=== PATIENT | female | born 1930 ===

== ENCOUNTER 2018-04-16 14:44 | Inpatient (IN) | payer MEDICARE ==
[2018-04-16] MEDS ORDERED: Albuterol-Ipratrop 3 mg / 0.5 (3 ml) UD IH STA ×2 (15:22→16:36)
--- NOTE | 2018-04-16 15:53 | RAD ---
Date of service: 04/16/2018 HISTORY: Cough and sob COMPARISON: No prior. FINDINGS: LUNGS: The lungs are well inflated and clear. There is discoid atelectasis in the left lower lobe. PLEURA: No pleural effusions or pneumothorax. CARDIOVASCULAR: The heart is normal in size. There are aortic atherosclerotic calcifications present. OSSEOUS STRUCTURES: Within normal limits for the patient's age. VISUALIZED UPPER ABDOMEN: Normal. OTHER FINDINGS: None. IMPRESSION: No active pulmonary disease.
[2018-04-16 15:57] LABS: BASO # 0.03 K/mm3 (0.0-2.0); BASO % 0.2 % (0.0-3.0); EOS # 0.3 (0.0-0.7); EOS % 1.8 % (1.5-5.0); GRAN # 11.4 (1.4-6.5); GRAN % 77.3 % (50.0-68.0); HEMOGLOBIN 11.8 g/dL (12.0-16.0); LYMPH # 1.6 (1.2-3.4); LYMPH % 10.9 % (22.0-35.0); MEAN CELL VOLUME 92.5 fl (80.0-105.0); MEAN CORPUSCULAR HEMOGLOBIN 30.3 pg (25.0-35.0); MEAN CORPUSCULAR HGB CONC 32.8 g/dl (31.0-37.0); MONO # 1.5 (0.1-0.6); MONO % 9.8 % (1.0-6.0); RBC 3.89 10^6/uL (3.5-6.1); RED CELL DISTRIBUTION WIDTH 13.6 % (11.5-14.5); WHITE BLOOD COUNT 14.7 10^3/uL (4.5-11.0)
[2018-04-16 16:19] LABS: ALBUMIN 3.9 g/dL (3.0-4.8); ALT/SGPT 126 U/L (7-56); AST/SGOT 154 U/L (14-36); B-TYPE NATRIURETIC PEPTIDE 706 pg/mL (0-450); BLOOD UREA NITROGEN 21 mg/dL (7-21); CALCIUM 9.7 mg/dL (8.4-10.5); GFR NON-AFRICAN AMERICAN 43; TROPONIN I < 0.01 ng/mL
[2018-04-16] MEDS ORDERED: cefTRIAXone 1 gm 1 GM/100 ML BAG IVPB STA (16:36)
[2018-04-16] MEDS ORDERED: Azithromycin 500MG/NS 250ml 500 MG/250 ML BAG IVPB STA (16:36)
[2018-04-16] MEDS ORDERED: Albuterol 0.083% Inhal Sol (2.5 mg/3 mL) UD INH PRN (18:22)
[2018-04-16] MEDS ORDERED: guaiFENesin 100 mg/5 ml Syrup UD PO PRN ×2 (18:27→18:48)
--- NOTE | 2018-04-16 18:42 | CP.PCM.HP ---
<Ila Narvaez - Last Filed: 04/16/18 18:33> History of Present Illness - History of Present Illness History of Present Illness: Ila Narvaez DO, PGY-2: Hospitalist HPI 88 year old [place]ralt[place] speaking female with a past medical history of asthma, dyslipidemia, hypothyroidism, and possible CAD who presented with 2 weeks of cough and congestion with 2 days of worsening dyspnea, cough, purulent sputum production, low grade fever, abdominal pain and polyruria. She denies any alleviating or exacerbating factors. She denies sore throat. She is from [place] and was visiting family for the holiday season. She denies any sick contacts, diarrhea, vomiting, nausea. She reports getting sick whenever the seasons change. Otherwise, 12 point ROS is negative. Labs and imaging suggest bronchitis, possible underlying pneumonia. PMH: Suffered a mild heart attack in the past, dyslipidemia, hypertension, asthma PSH: Denies any surgeries Allergies: Denies allergies to any drugs Social: Homemaker, never smoke, drank, or used illicit drugs Medications: as put in the system Present on Admission - Present on Admission Any Indicators Present on Admission: No Review of Systems - Review of Systems All systems: reviewed and no additional remarkable complaints except (as per HPI) Past Patient History - Infectious Disease Hx of Infectious Diseases: None - Past Social History Smoking Status: Unknown If Ever Smoked - CARDIAC Hx Cardiac Disorders: Yes Hx Hypercholesterolemia: Yes - PULMONARY Hx Asthma: Yes - ENDOCRINE/METABOLIC Hx Hypothyroidism: Yes - HEMATOLOGICAL/ONCOLOGICAL Hx Blood Disorders: No - PSYCHIATRIC Hx Substance Use: No - ANESTHESIA Hx Anesthesia Reactions: No Meds Allergies/Adverse Reactions: Allergies Allergy/AdvReac Type Severity Reaction Status Date / Time No Known Allergies Allergy Verified 04/16/18 15:00 Physical Exam - Constitutional Appears: No Acute Distress, Other (congested) - Head Exam Head Exam: ATRAUMATIC, NORMOCEPHALIC - Eye Exam Additional comments: coryza - ENT Exam ENT Exam: Mucous Membranes Moist, Normal Oropharynx Additional comments: no erythema or exudate in posterior pharynx - Respiratory Exam Respiratory Exam: Rhonchi (diffusely and bilaterally, coarse breath sounds). absent: Chest Wall Tenderness - Cardiovascular Exam Cardiovascular Exam: Tachycardia, +S1, +S2 - GI/Abdominal Exam GI & Abdominal Exam: Normal Bowel Sounds, Soft. absent: Guarding, Rebound - Extremities Exam Additional comments: trace lower extremity edema - Back Exam Back exam: NORMAL INSPECTION. absent: CVA tenderness (L), CVA tenderness (R) - Neurological Exam Neurological exam: Alert, CN II-XII Intact, Oriented x3 - Psychiatric Exam Psychiatric exam: Normal Affect, Normal Mood - Skin Skin Exam: Dry, Intact, Normal Color, Warm Results - Vital Signs Recent Vital Signs: Last Vital Signs Temp 99.2 F 04/16/18 14:50 Pulse 110 H 04/16/18 18:22 Resp 18 04/16/18 18:22 BP 171/80 H 04/16/18 18:22 Pulse Ox 96 04/16/18 18:22 - Labs Result Diagrams: 04/16/18 15:52 04/16/18 15:52 Labs: Laboratory Results - last 24 hr 04/16/18 04/16/18 04/16/18 15:52 15:52 15:52 WBC 14.7 H RBC 3.89 Hgb 11.8 L Hct 36.0 MCV 92.5 MCH 30.3 MCHC 32.8 RDW 13.6 Plt Count 416 MPV 10.0 Gran % 77.3 H Lymph % (Auto) 10.9 L [place] % (Auto) 9.8 H Eos % (Auto) 1.8 Baso % (Auto) 0.2 Gran # 11.40 H Lymph # (Auto) 1.6 [place] # (Auto) 1.5 H Eos # (Auto) 0.3 Baso # (Auto) 0.03 Sodium 141 Potassium 4.3 Chloride 109 H Carbon Dioxide 26 Anion Gap 10 BUN 21 Creatinine 1.2 Est GFR ( Amer) 52 Est GFR (Non-Af Amer) 43 Random Glucose 98 Calcium 9.7 Total Bilirubin 0.5 AST 154 H ALT 126 H Alkaline Phosphatase 159 H Lactate Dehydrogenase 670 Total Creatine Kinase 87 Troponin I < 0.01 NT-Pro-B Natriuret Pep 706 H Total Protein 7.8 Albumin 3.9 Globulin 3.8 Albumin/Globulin Ratio 1.0 L Influenza Typ A,B (EIA) Negative for flu a/b - EKG Data EKG shows normal: Sinus rhythm Assessment & Plan - Assessment and Plan (Free Text) Assessment: 88 year old female with a past medical history of dyslipidemia, asthma, possible CAD, hypothyroidism who presents with 2 days of worsening cough, dyspnea, and purulent sputum production. Labs and imaging suggest acute bronchitis and possible underlying pneumonia. 1) Acute bronchitis - Azithromycin and Ceftriaxone - Chest X-ray shows no infiltrate - Leukocytosis with neutrophil predominance (prior to steroid administration) - Albuterol inhaled q4h PRN - Tessalon Perles 100 TID - Robitussin q4h PRN for cough - Procalcitonin - urine legionella and strep pneumonia antigen - Serum IgM Mycoplasma pneumonia - Blood cultures, urine and sputum cultures - NS 60 mls/hr 2) History of [place] - Aspirin 81 - Atorvastatin 10 mg DIN - Enalapril (hold for now) - Dilitazem 120 CD - Lipid panel, HgbA1c 3) Hypothyroidism - Levothyroxine 100 mcg 06:00 4) History of CHF - Lasix 40 mg PO daily 5) DVT prophylaxis - SCD Case reviewed and discussed with attending physician Dr. Delarosa - Date & Time Date: 04/16/18 Time: 18:53 <Govind Delarosa - Last Filed: 04/17/18 08:53> Results - Vital Signs Recent Vital Signs: Last Vital Signs Temp 98.1 F 04/17/18 06:00 Pulse 93 H 04/17/18 06:50 Resp 20 04/17/18 06:00 BP 168/87 H 04/17/18 06:50 Pulse Ox 96 04/16/18 18:22 - Labs Result Diagrams: 04/17/18 07:00 04/17/18 07:00 Labs: Laboratory Results - last 24 hr 04/16/18 04/16/18 04/16/18 15:52 15:52 15:52 WBC 14.7 H RBC 3.89 Hgb 11.8 L Hct 36.0 MCV 92.5 MCH 30.3 MCHC 32.8 RDW 13.6 Plt Count 416 MPV 10.0 Gran % 77.3 H Lymph % (Auto) 10.9 L [place] % (Auto) 9.8 H Eos % (Auto) 1.8 Baso % (Auto) 0.2 Gran # 11.40 H Lymph # (Auto) 1.6 [place] # (Auto) 1.5 H Eos # (Auto) 0.3 Baso # (Auto) 0.03 Sodium 141 Potassium 4.3 Chloride 109 H Carbon Dioxide 26 Anion Gap 10 BUN 21 Creatinine 1.2 Est GFR ( Amer) 52 Est GFR (Non-Af Amer) 43 POC Glucose (mg/dL) Random Glucose 98 Hemoglobin A1c Calcium 9.7 Total Bilirubin 0.5 AST 154 H ALT 126 H Alkaline Phosphatase 159 H Lactate Dehydrogenase 670 Total Creatine Kinase 87 Troponin I < 0.01 NT-Pro-B Natriuret Pep 706 H Total Protein 7.8 Albumin 3.9 Globulin 3.8 Albumin/Globulin Ratio 1.0 L Triglycerides Cholesterol LDL Cholesterol Direct HDL Cholesterol Procalcitonin Free T4 TSH 3rd Generation Urine Color Urine Appearance Urine pH Ur Specific [place] Urine Protein Urine Glucose (UA) Urine Ketones Urine Blood Urine Nitrate Urine Bilirubin Urine Urobilinogen Ur Leukocyte Esterase Urine RBC Urine WBC Ur Epithelial Cells Urine Bacteria Influenza Typ A,B (EIA) Negative for flu a/b Mycoplasma pneumon IgM 04/16/18 04/16/18 04/16/18 17:00 17:00 17:00 WBC RBC Hgb Hct MCV MCH MCHC RDW Plt Count MPV Gran % Lymph % (Auto) [place] % (Auto) Eos % (Auto) Baso % (Auto) Gran # Lymph # (Auto) [place] # (Auto) Eos # (Auto) Baso # (Auto) Sodium Potassium Chloride Carbon Dioxide Anion Gap BUN Creatinine Est GFR ( Amer) Est GFR (Non-Af Amer) POC Glucose (mg/dL) Random Glucose Hemoglobin A1c Calcium Total Bilirubin AST ALT Alkaline Phosphatase Lactate Dehydrogenase Total Creatine Kinase Troponin I NT-Pro-B Natriuret Pep Total Protein Albumin Globulin Albumin/Globulin Ratio Triglycerides 118 Cholesterol 132 LDL Cholesterol Direct 68 HDL Cholesterol 28 L Procalcitonin 0.54 H Free T4 TSH 3rd Generation Urine Color Urine Appearance Urine pH Ur Specific [place] Urine Protein Urine Glucose (UA) Urine Ketones Urine Blood Urine Nitrate Urine Bilirubin Urine Urobilinogen Ur Leukocyte Esterase Urine RBC Urine WBC Ur Epithelial Cells Urine Bacteria Influenza Typ A,B (EIA) Mycoplasma pneumon IgM Negative 04/16/18 04/17/18 04/17/18 17:00 00:30 00:51 WBC RBC Hgb Hct MCV MCH MCHC RDW Plt Count MPV Gran % Lymph % (Auto) [place] % (Auto) Eos % (Auto) Baso % (Auto) Gran # Lymph # (Auto) [place] # (Auto) Eos # (Auto) Baso # (Auto) Sodium Potassium Chloride Carbon Dioxide Anion Gap BUN Creatinine Est GFR ( Amer) Est GFR (Non-Af Amer) POC Glucose (mg/dL) 129 H Random Glucose Hemoglobin A1c 5.8 Calcium Total Bilirubin AST ALT Alkaline Phosphatase Lactate Dehydrogenase Total Creatine Kinase Troponin I NT-Pro-B Natriuret Pep Total Protein Albumin Globulin Albumin/Globulin Ratio Triglycerides Cholesterol LDL Cholesterol Direct HDL Cholesterol Procalcitonin Free T4 TSH 3rd Generation Urine Color Yellow Urine Appearance Clear Urine pH 6.0 Ur Specific [place] 1.025 Urine Protein Trace H Urine Glucose (UA) Negative Urine Ketones Negative Urine Blood Small H Urine Nitrate Negative Urine Bilirubin Negative Urine Urobilinogen 0.2 Ur Leukocyte Esterase Negative Urine RBC 1 - 3 H Urine WBC 0 - 2 Ur Epithelial Cells 1 - 3 Urine Bacteria Few Influenza Typ A,B (EIA) Mycoplasma pneumon IgM 04/17/18 04/17/18 04/17/18 07:00 07:00 07:00 WBC 15.1 H RBC 3.77 Hgb 11.4 L Hct 34.8 L MCV 92.3 MCH 30.2 MCHC 32.8 RDW 13.6 Plt Count 483 H MPV 10.3 Gran % 86.8 H Lymph % (Auto) 9.7 L [place] % (Auto) 3.4 Eos % (Auto) 0.0 L Baso % (Auto) 0.1 Gran # 13.11 H Lymph # (Auto) 1.5 [place] # (Auto) 0.5 Eos # (Auto) 0.0 Baso # (Auto) 0.01 Sodium 141 Potassium 4.7 Chloride 108 H Carbon Dioxide 25 Anion Gap 13 BUN 22 H Creatinine 1.1 Est GFR ( Amer) 57 Est GFR (Non-Af Amer) 47 POC Glucose (mg/dL) Random Glucose 143 H Hemoglobin A1c Calcium 9.8 Total Bilirubin AST ALT Alkaline Phosphatase Lactate Dehydrogenase Total Creatine Kinase Troponin I NT-Pro-B Natriuret Pep Total Protein Albumin Globulin Albumin/Globulin Ratio Triglycerides Cholesterol LDL Cholesterol Direct HDL Cholesterol Procalcitonin Free T4 1.15 TSH 3rd Generation 2.58 Urine Color Urine Appearance Urine pH Ur Specific [place] Urine Protein Urine Glucose (UA) Urine Ketones Urine Blood Urine Nitrate Urine Bilirubin Urine Urobilinogen Ur Leukocyte Esterase Urine RBC Urine WBC Ur Epithelial Cells Urine Bacteria Influenza Typ A,B (EIA) Mycoplasma pneumon IgM Attending/Attestation - Attestation I have personally seen and examined this patient.: Yes I have fully participated in the care of the patient.: Yes I have reviewed all pertinent clinical information: Yes
[2018-04-16 18:46] LABS: HDL CHOLESTEROL 28 mg/dL (29-60)
[2018-04-16 18:57] LABS: LDL CHOLESTEROL 68 mg/dL (0-129)
--- NOTE | 2018-04-16 19:12 | ED PDOC ---
Arrival/HPI - General Chief Complaint: Cough, Cold, Congestion Time Seen by Provider: 04/16/18 14:50 Historian: Patient, Family - History of Present Illness Narrative History of Present Illness (Text): 04/16/18 19:09 88yr old female with hx of asthma, HTN, CAD presents today with a 2 week history of cough, shortness of breath, subjective fevers. pt c/o left sided rib pain with coughing. pt states she symptoms have been worsening over the past 2 weeks. pt c/o sore throat and nasal congestion. pt denies vomiting/diarrhea. pt c/of urinary frequency. no dizziness or weakness. pt denies leg pain, leg swelling. no other complaints. Past Medical History - Provider Review Nursing Documentation Reviewed: Yes - Travel History Have you recently traveled outside [place] w/in the past 3 mons?: No - Infectious Disease Hx of Infectious Diseases: None - Reproductive Menopause: Yes - Cardiac Hx Cardiac Disorders: Yes - Pulmonary Hx Asthma: Yes - Endocrine/Metabolic Hx Hypothyroidism: Yes - Hematological/Oncological Hx Blood Disorders: No - Psychiatric Hx Substance Use: No - Anesthesia Hx Anesthesia Reactions: No Family/Social History - Physician Review Nursing Documentation Reviewed: Yes Family/Social History: Unknown Family HX Smoking Status: Unknown If Ever Smoked Hx Alcohol Use: No Hx Substance Use: No Allergies/Home Meds Allergies/Adverse Reactions: Allergies No Known Allergies Allergy (Verified 04/16/18 15:00) Home Medications: Home Meds Medication Instructions Recorded Confirmed Atorvastatin [Lipitor] 0 mg PO DIN 04/16/18 04/16/18 Review of Systems - Review of Systems Constitutional: Fevers. absent: Fatigue ENT: Sore Throat, Sinus Congestion Respiratory: SOB, Cough Cardiovascular: absent: Chest Pain, Palpitations Gastrointestinal: Abdominal Pain. absent: Constipation, Diarrhea, Nausea, Vomiting Genitourinary Female: Frequency. absent: Dysuria, Hematuria Musculoskeletal: absent: Arthralgias, Back Pain, Neck Pain Skin: absent: Rash, Pruritis Neurological: absent: Headache, Dizziness Psychiatric: absent: Anxiety, Depression Physical Exam Vital Signs Reviewed: Yes Vital Signs Temp Pulse Resp BP Pulse Ox 04/16/18 18:18 113 H 20 171/91 H 96 04/16/18 17:54 110 H 18 152/88 H 96 04/16/18 16:57 93 H 20 152/80 H 100 04/16/18 14:50 99.2 F 99 H 20 157/95 H 94 L Temperature: Afebrile Blood Pressure: Hypertensive Pulse: Regular Respiratory Rate: Tachypneic Appearance: Positive for: Well-Appearing, Non-Toxic, Comfortable Pain Distress: Mild Mental Status: Positive for: Alert and Oriented X 3 - Systems Exam Head: Present: Atraumatic Mouth: Present: Moist Mucous Membranes Neck: Present: Normal Range of Motion Respiratory/Chest: Present: Good Air Exchange, Wheezes, Rales (at the bases), Rhonchi, Tachypneic. No: Clear to Auscultation, Respiratory Distress, Accessory Muscle Use Cardiovascular: Present: Regular Rate and Rhythm, Normal S1, S2. No: Murmurs Abdomen: No: Tenderness, Distention, Rebound, Guarding Back: Present: Normal Inspection Upper Extremity: Present: Normal ROM Lower Extremity: Present: Normal ROM. No: Edema, CALF TENDERNESS Neurological: Present: GCS=15, Speech Normal Skin: Present: Warm, Dry, Normal Color. No: Rashes Psychiatric: Present: Alert, Oriented x 3 Medical Decision Making ED Course and Treatment: 04/16/18 19:13 88yr old female with cough, shortness of breath worsening over the past 2 weeks. Found to be tachypneic with wheezing rhonchi and rales at the bases saturating at 92-94% on room air cbc: wbc:14.7 CMP: slightly elevated LFts. trop; wnl BNp; 706 EKG shows sinus rhythm with PACs at 89 bpm left axis deviation and right bundle branch block QTC 462 pt given duoneb/ solumedrol pt reassessment; pt feeling better. still slightly hypoxic. cxr; FINDINGS: LUNGS: The lungs are well inflated and clear. There is discoid atelectasis in the left lower lobe. PLEURA: No pleural effusions or pneumothorax. CARDIOVASCULAR: The heart is normal in size. There are aortic atherosclerotic calcifications present. OSSEOUS STRUCTURES: Within normal limits for the patient's age. VISUALIZED UPPER ABDOMEN: Normal. OTHER FINDINGS: None. IMPRESSION: No active pulmonary disease. rapid flu;negative blood and urine cultures pending. pt started on Rocephin and zithromax IV case discussed with dr. deal; accepts observational status admission to [facility] for SOB/cough/elevated BNP impression; shortness of breath, cough, leukocytosis admit obs status. Reassessment Condition: Re-examined, Improved - Lab Interpretations Lab Results: 04/16/18 15:52 04/16/18 15:52 Lab Results 04/16/18 15:52: Influenza Typ A,B (EIA) Negative for flu a/b 04/16/18 15:52: WBC 14.7 H, RBC 3.89, Hgb 11.8 L, Hct 36.0, MCV 92.5, MCH 30.3, MCHC 32.8, RDW 13.6, Plt Count 416, MPV 10.0, Gran % 77.3 H, Lymph % (Auto) 10.9 L, [place] % (Auto) 9.8 H, Eos % (Auto) 1.8, Baso % (Auto) 0.2, Gran # 11.40 H, Lymph # (Auto) 1.6, [place] # (Auto) 1.5 H, Eos # (Auto) 0.3, Baso # (Auto) 0.03 04/16/18 15:52: Sodium 141, Potassium 4.3, Chloride 109 H, Carbon Dioxide 26, Anion Gap 10, BUN 21, Creatinine 1.2, Est GFR ( Amer) 52, Est GFR (Non-Af Amer) 43, Random Glucose 98, Calcium 9.7, Total Bilirubin 0.5, AST 154 H, ALT 126 H, Alkaline Phosphatase 159 H, Lactate Dehydrogenase 670, Total Creatine Kinase 87, Troponin I < 0.01, NT-Pro-B Natriuret Pep 706 H, Total Protein 7.8, Albumin 3.9, Globulin 3.8, Albumin/Globulin Ratio 1.0 L - RAD Interpretation Radiology Orders: 04/16/18 15:21 CHEST PORTABLE [RAD] Stat - Medication Orders Current Medication Orders: Albuterol Sulfate (Albuterol 0.083% Inhal Jazmin (2.5 Mg/3 Ml) Ud) 2.5 mg INH Q4H PRN PRN Reason: SOB Aspirin (Ecotrin) 81 mg PO DAILY APOLLO Atorvastatin Calcium (Lipitor) 10 mg PO DIN APOLLO Benzonatate (Tessalon Perles) 100 mg PO TID APOLLO Diltiazem HCl (Cardizem Cd) 120 mg PO DAILY APOLLO Furosemide (Lasix) 20 mg PO DAILY APOLLO Guaifenesin (Robitussin) 100 mg PO Q4H PRN PRN Reason: Cough Ceftriaxone Sodium (Rocephin 1 Gram Ivpb) 1 gm in 100 mls @ 100 mls/hr IVPB DAILY APOLLO; Protocol Azithromycin 250 mg/ Sodium (Chloride) 250 mls @ 167 mls/hr IVPB DAILY APOLLO; Protocol Levothyroxine Sodium (Synthroid) 100 mcg PO 0600 APOLLO Discontinued Medications Albuterol/Ipratropium (Duoneb 3 Mg/0.5 Mg (3 Ml) Ud) 3 ml IH STAT STA Stop: 04/16/18 15:23 Last Admin: 04/16/18 15:34 Dose: 3 ml Albuterol/Ipratropium (Duoneb 3 Mg/0.5 Mg (3 Ml) Ud) 3 ml IH STAT STA Stop: 04/16/18 16:37 Last Admin: 04/16/18 16:47 Dose: 3 ml Guaifenesin (Robitussin) 100 mg PO Q4H PRN PRN Reason: Cough Ceftriaxone Sodium (Rocephin 1 Gram Ivpb) 1 gm in 100 mls @ 200 mls/hr IVPB STAT STA; Protocol Stop: 04/16/18 17:05 Last Admin: 04/16/18 16:55 Dose: 200 mls/hr eMAR Start Stop Document 04/16/18 16:55 BB (Rec: 04/16/18 16:57 BB [id number]) Intravenous Solution Start Date 04/16/18 Start Time 16:56 End Date 04/16/18 End time 17:26 Total Infusion Time 30 Azithromycin (Zithromax 500mg In Ns) 500 mg in 250 mls @ 167 mls/hr IVPB STAT STA; Protocol Stop: 04/16/18 18:05 Last Admin: 04/16/18 17:45 Dose: 167 mls/hr eMAR Start Stop Document 04/16/18 17:45 BB (Rec: 04/16/18 17:45 BB [id number]) Intravenous Solution Start Date 04/16/18 Start Time 17:45 End Date 04/16/18 End time 19:15 Total Infusion Time 90 Methylprednisolone (Solu-Medrol) 125 mg IVP STAT STA Stop: 04/16/18 16:37 Last Admin: 04/16/18 16:49 Dose: 125 mg IVP Administration Document 04/16/18 16:49 BB (Rec: 04/16/18 16:49 ALLISON [id number]) Charges for Administration # of IVP Administrations 1 Disposition/Present on Arrival - Present on Arrival Any Indicators Present on Arrival: No History of DVT/PE: No History of Uncontrolled Diabetes: No Urinary Catheter: No History of Decub. Ulcer: No History Surgical Site Infection Following: None - Disposition Have Diagnosis and Disposition been Completed?: Yes Diagnosis: Shortness of breath, Leukocytosis, Elevated brain natriuretic peptide (BNP) level Disposition: HOSPITALIZED Disposition Time: 16:40 Patient Plan: Observation Patient Problems: Current Active Problems Problem Status Onset Elevated brain natriuretic peptide (BNP) level Acute Leukocytosis Acute Shortness of breath Acute Condition: FAIR
[2018-04-17 00:43] LABS: URINE BILIRUBIN NEGATIVE (NEGATIVE); URINE BLOOD SMALL (NEGATIVE); URINE GLUCOSE (UA) NEGATIVE (NEGATIVE); URINE LEUKOCYTE ESTERASE NEGATIVE Leu/uL (NEGATIVE); URINE PROTEIN TRACE mg/dL (<30 mg/dL); URINE UROBILINOGEN 0.2 E.U./dL (<1 E.U./dL)
[2018-04-17 00:49] LABS: URINE APPEARANCE CLEAR (CLEAR); URINE COLOR YELLOW (YELLOW)
[2018-04-17 01:02] LABS: URINE BACTERIA FEW /hpf; URINE WBC 0 - 2 /hpf (0-6)
[2018-04-17] MEDS: Levothyroxine 100 MCG TAB PO SCH (05:25)
[2018-04-17] MEDS: diltiaZEM 120 mg/24 Hours CD Cap PO SCH (06:50)
[2018-04-17 07:31] LABS: BASO # 0.01 K/mm3 (0.0-2.0); BASO % 0.1 % (0.0-3.0); GRAN # 13.11 (1.4-6.5); GRAN % 86.8 % (50.0-68.0); HEMOGLOBIN 11.4 g/dL (12.0-16.0); LYMPH # 1.5 (1.2-3.4); LYMPH % 9.7 % (22.0-35.0); MEAN CELL VOLUME 92.3 fl (80.0-105.0); MEAN CORPUSCULAR HEMOGLOBIN 30.2 pg (25.0-35.0); MEAN CORPUSCULAR HGB CONC 32.8 g/dl (31.0-37.0); MEAN PLATELET VOLUME 10.3 fl (7.0-11.0); MONO # 0.5 (0.1-0.6); MONO % 3.4 % (1.0-6.0); RBC 3.77 10^6/uL (3.5-6.1); RED CELL DISTRIBUTION WIDTH 13.6 % (11.5-14.5); WHITE BLOOD COUNT 15.1 10^3/uL (4.5-11.0)
[2018-04-17 07:48] LABS: CALCIUM 9.8 mg/dL (8.4-10.5)
[2018-04-17 07:56] LABS: FREE T4 1.15 ng/dL (0.78-2.19)
--- NOTE | 2018-04-17 09:56 | CARD ---
APPROVED REPORT Date of service: 04/16/2018 EKG Measurement Heart [id number] <Conclusion> Sinus rhythm with premature atrial complexes with aberrant conduction Left axis deviation Right bundle branch block Abnormal ECG
[2018-04-17] MEDS ORDERED: cefTRIAXone 1 gm 1 GM/100 ML BAG IVPB SCH (10:00)
[2018-04-17] MEDS: Azithromycin 250 MG in Sodium Chloride 0.9% 250 ML IVPB SCH (10:07)
[2018-04-17] MEDS ORDERED: guaiFENesin DM 100 mg-10 mg/5 ml UD PO PRN (11:26)
--- NOTE | 2018-04-17 11:29 | CP.PCM.PN ---
<Malik Buck - Last Filed: 04/17/18 11:18> Subjective - Date & Time of Evaluation Date of Evaluation: 04/17/18 Time of Evaluation: 10:00 - Subjective Subjective: Malik Buck Y1 [facility] Progress Note Patient seen and examined this morning at bedside. No acute events reported overnight. Continuing to admit to cough. Denies CP, SOB, nausea, vomiting, numbness, tingling and headaches. Will give robitussin-dm, CXR in AM. Objective - Vital Signs/Intake and Output Vital Signs (last 24 hours): Temp Pulse Resp BP Pulse Ox 98.1 F 93 H 20 124/78 96 04/17/18 06:00 04/17/18 06:50 04/17/18 06:00 04/17/18 10:06 04/16/18 18:22 Intake and Output: 04/17/18 04/17/18 06:59 18:59 Intake Total 120 Balance 120 - Medications Medications: Current Medications Albuterol Sulfate (Albuterol 0.083% Inhal Jazmin (2.5 Mg/3 Ml) Ud) 2.5 mg INH Q4H PRN PRN Reason: SOB Aspirin (Ecotrin) 81 mg PO DAILY [facility] Last Admin: 04/17/18 10:07 Dose: 81 mg Atorvastatin Calcium (Lipitor) 10 mg PO DIN [facility] Last Admin: 04/16/18 22:26 Dose: 10 mg Benzonatate (Tessalon Perles) 100 mg PO TID [facility] Last Admin: 04/17/18 10:06 Dose: 100 mg Diltiazem HCl (Cardizem Cd) 120 mg PO DAILY [facility] Last Admin: 04/17/18 06:50 Dose: 120 mg Furosemide (Lasix) 20 mg PO DAILY [facility] Last Admin: 04/17/18 10:06 Dose: 20 mg Guaifenesin (Robitussin) 100 mg PO Q4H PRN PRN Reason: Cough Ceftriaxone Sodium (Rocephin 1 Gram Ivpb) 1 gm in 100 mls @ 100 mls/hr IVPB DAILY [facility]; Protocol Azithromycin 250 mg/ Sodium (Chloride) 250 mls @ 167 mls/hr IVPB DAILY [facility]; Protocol Last Admin: 04/17/18 10:07 Dose: 167 mls/hr Levothyroxine Sodium (Synthroid) 100 mcg PO 0600 [facility] Last Admin: 04/17/18 05:25 Dose: 100 mcg - Labs Labs: 04/17/18 07:00 04/17/18 07:00 - Additional Findings Additional findings: - Constitutional Appears: No Acute Distress, Other (congested) - Head Exam Head Exam: ATRAUMATIC, NORMOCEPHALIC - Eye Exam Additional comments: EOMI, PERRL - ENT Exam ENT Exam: Mucous Membranes Moist, Normal Oropharynx Additional comments: no erythema/exudate in posterior pharynx - Respiratory Exam Respiratory Exam: Rhonchi (diffusely and bilaterally, coarse breath sounds). absent: Chest Wall Tenderness - Cardiovascular Exam Cardiovascular Exam: Tachycardia, +S1, +S2 - GI/Abdominal Exam GI & Abdominal Exam: Normal Bowel Sounds, Soft. absent: Guarding, Rebound - Extremities Exam Additional comments: trace lower extremity edema - Back Exam Back exam: NORMAL INSPECTION. absent: CVA tenderness (L), CVA tenderness (R) - Neurological Exam Neurological exam: Alert, CN II-XII Intact, Oriented x3 - Psychiatric Exam Psychiatric exam: Normal Affect, Normal Mood - Skin Skin Exam: Dry, Intact, Normal Color, Warm Assessment and Plan - Assessment and Plan (Free Text) Assessment: 88 year old female with a past medical history of dyslipidemia, asthma, possible CAD, hypothyroidism who presents with 2 days of worsening cough, dyspnea, and purulent sputum production. Labs and imaging suggest acute bronchitis and possible underlying pneumonia. Plan: Acute bronchitis -Azithromycin and rocephin day 2 -Chest X-ray shows no infiltrate, repeat in AM -influezna/mycoplasma are negative -legionella pending -afebrile, WBC 15.1 fomr 14.7 yesterday -procalc is 0.54 -Albuterol, tessalon perles, robitussin-dm -Blood cultures, urine and sputum cultures pending -NS 60 mls/hr Transaminitis -uncertain etiology, consider hepatic congestion -Abd US pending History of [place] -Aspirin 81 -Atorvastatin - hold for transaminitis -Enalapril (hold for now) -Dilitazem 120 CD -Lipid panel and HgbA1c WNL Hypothyroidism -Levothyroxine 100 mcg History of CHF - unspecified type -elevated BNP - mild -Lasix 40 mg PO daily PPX/Diet -SCD -HHD Patient seen and case discussed with attending physician Dr. Delarosa <Govind Delarosa - Last Filed: 04/17/18 14:21> Objective - Vital Signs/Intake and Output Vital Signs (last 24 hours): Temp Pulse Resp BP Pulse Ox 98.7 F 83 14 112/53 L 96 04/17/18 12:00 04/17/18 12:00 04/17/18 12:00 04/17/18 12:00 04/16/18 18:22 Intake and Output: 04/17/18 04/17/18 06:59 18:59 Intake Total 120 Balance 120 - Medications Medications: Current Medications Albuterol Sulfate (Albuterol 0.083% Inhal Jazmin (2.5 Mg/3 Ml) Ud) 2.5 mg INH Q4H PRN PRN Reason: SOB Aspirin (Ecotrin) 81 mg PO DAILY [facility] Last Admin: 04/17/18 10:07 Dose: 81 mg Atorvastatin Calcium (Lipitor) 10 mg PO DIN [facility] Last Admin: 04/16/18 22:26 Dose: 10 mg Benzonatate (Tessalon Perles) 100 mg PO TID [facility] Last Admin: 04/17/18 10:06 Dose: 100 mg Diltiazem HCl (Cardizem Cd) 120 mg PO DAILY [facility] Last Admin: 04/17/18 06:50 Dose: 120 mg Furosemide (Lasix) 20 mg PO DAILY [facility] Last Admin: 04/17/18 10:06 Dose: 20 mg Guaifenesin/Dextromethorphan (Robitussin Dm) 5 ml PO Q4H PRN PRN Reason: Cough Ceftriaxone Sodium (Rocephin 1 Gram Ivpb) 1 gm in 100 mls @ 100 mls/hr IVPB DAILY [facility]; Protocol Last Admin: 04/17/18 12:11 Dose: 100 mls/hr Azithromycin 250 mg/ Sodium (Chloride) 250 mls @ 167 mls/hr IVPB DAILY [facility]; Protocol Last Admin: 04/17/18 10:07 Dose: 167 mls/hr Levothyroxine Sodium (Synthroid) 100 mcg PO 0600 [facility] Last Admin: 04/17/18 05:25 Dose: 100 mcg - Labs Labs: 04/17/18 07:00 04/17/18 07:00 Attending/Attestation - Attestation I have personally seen and examined this patient.: Yes I have fully participated in the care of the patient.: Yes I have reviewed all pertinent clinical information, including history, physical exam and plan: Yes
--- NOTE | 2018-04-17 18:03 | US ---
Date of service: 04/17/2018 HISTORY: lft COMPARISON: None. TECHNIQUE: Sonographic evaluation of the abdomen. FINDINGS: LIVER: Measures 13.5 cm. Hepatopedal blood flow. Fatty infiltration manifest ultrasonographically as increased echogenicity of the liver parenchyma. No mass. No intrahepatic bile duct dilatation. GALLBLADDER: Unremarkable. No gallstones. COMMON BILE DUCT: Measures 2.8 mm. No stones. No dilatation. PANCREAS: Unremarkable as visualized. No mass. No ductal dilatation. RIGHT KIDNEY: Measures 4.4 x 8.6cm. Normal echogenicity. No calculus, mass, or hydronephrosis. LEFT KIDNEY: Measures 4.3 x 8.8cm. Normal echogenicity. No calculus, mass, or hydronephrosis. SPLEEN: Normal in size and contour. No mass. AORTA: No aneurysmal dilatation. IVC: Unremarkable. OTHER FINDINGS: None. IMPRESSION: No acute findings related to/ accounting for the clinical presentation. Normal size liver/hepatic steatosis.
[2018-04-18] MEDS: Levothyroxine 100 MCG TAB PO SCH (06:14)
[2018-04-18] MEDS ORDERED: Piperacillin/Tazobact 2.25gm 2.25 GM/100 ML BAG IVPB STA (09:57)
[2018-04-18] MEDS ORDERED: Piperacillin/Tazobact 3.375 gm 100 ML IVPB SCH (10:00)
[2018-04-18 10:12] LABS: ALBUMIN 3.9 g/dL (3.0-4.8); CALCIUM 9.8 mg/dL (8.4-10.5)
[2018-04-18] MEDS: diltiaZEM 120 mg/24 Hours CD Cap PO SCH (10:21)
[2018-04-18] MEDS: Azithromycin 250 MG in Sodium Chloride 0.9% 250 ML IVPB SCH ×2 (10:21→11:01)
[2018-04-18] MEDS: guaiFENesin DM 100 mg-10 mg/5 ml UD PO SCH ×3 (10:26→18:11)
[2018-04-18 10:56] LABS: BASO # 0.03 K/mm3 (0.0-2.0); BASO % 0.2 % (0.0-3.0); EOS # 0.2 (0.0-0.7); GRAN # 12.5 (1.4-6.5); GRAN % 75.4 % (50.0-68.0); HEMOGLOBIN 11.9 g/dL (12.0-16.0); LYMPH # 2.3 (1.2-3.4); LYMPH % 13.7 % (22.0-35.0); MEAN CELL VOLUME 92.4 fl (80.0-105.0); MEAN CORPUSCULAR HEMOGLOBIN 30.3 pg (25.0-35.0); MEAN CORPUSCULAR HGB CONC 32.8 g/dl (31.0-37.0); MEAN PLATELET VOLUME 10.4 fl (7.0-11.0); MONO # 1.6 (0.1-0.6); MONO % 9.7 % (1.0-6.0); RBC 3.93 10^6/uL (3.5-6.1); RED CELL DISTRIBUTION WIDTH 13.8 % (11.5-14.5); WHITE BLOOD COUNT 16.6 10^3/uL (4.5-11.0)
--- NOTE | 2018-04-18 12:34 | RAD ---
Date of service: 04/18/2018 HISTORY: bronchitis COMPARISON: 04/16/2018 FINDINGS: LUNGS: No active pulmonary disease. PLEURA: No significant pleural effusion identified, no pneumothorax apparent. CARDIOVASCULAR: No aortic atherosclerotic calcification present. Normal cardiac size. No pulmonary vascular congestion. OSSEOUS STRUCTURES: No significant abnormalities. VISUALIZED UPPER ABDOMEN: Normal. OTHER FINDINGS: None. IMPRESSION: No active disease.
--- NOTE | 2018-04-18 12:54 | CP.PCM.PN ---
<Dedrick Cazares - Last Filed: 04/18/18 12:50> Subjective - Date & Time of Evaluation Date of Evaluation: 04/18/18 Time of Evaluation: 06:00 - Subjective Subjective: Patient seen and examined bedside in AM. Patient states she has pain in the chest when she coughs and breathing is still bad. Denies nausea, vomiting, numbness, tingling and headaches. Objective - Vital Signs/Intake and Output Vital Signs (last 24 hours): Temp Pulse Resp BP Pulse Ox 98.1 F 87 19 152/74 H 96 04/17/18 18:00 04/18/18 10:21 04/17/18 18:00 04/18/18 10:23 04/16/18 18:22 Intake and Output: 04/18/18 04/18/18 06:59 18:59 Intake Total 1500 Output Total 2 Balance 1498 - Medications Medications: Current Medications Albuterol Sulfate (Albuterol 0.083% Inhal Jazmin (2.5 Mg/3 Ml) Ud) 2.5 mg INH Q4H PRN PRN Reason: SOB Aspirin (Ecotrin) 81 mg PO DAILY [facility] Last Admin: 04/18/18 10:22 Dose: 81 mg Atorvastatin Calcium (Lipitor) 10 mg PO DIN [facility] Last Admin: 04/16/18 22:26 Dose: 10 mg Benzonatate (Tessalon Perles) 100 mg PO TID [facility] Last Admin: 04/18/18 10:22 Dose: 100 mg Diltiazem HCl (Cardizem Cd) 120 mg PO DAILY [facility] Last Admin: 04/18/18 10:21 Dose: 120 mg Doxycycline Hyclate (Doryx) 100 mg PO Q12 [facility]; Protocol Stop: 04/27/18 22:01 Furosemide (Lasix) 20 mg PO DAILY [facility] Last Admin: 04/18/18 10:23 Dose: 20 mg Guaifenesin/Dextromethorphan (Robitussin Dm) 10 ml PO Q4H [facility] Last Admin: 04/18/18 10:26 Dose: 10 ml Cefepime HCl (Maxipime 1gm) 1 gm in 100 mls @ 100 mls/hr IVPB Q12 [facility]; Protocol Stop: 04/27/18 22:01 Levothyroxine Sodium (Synthroid) 100 mcg PO 0600 [facility] Last Admin: 04/18/18 06:14 Dose: 100 mcg - Labs Labs: 04/18/18 09:45 04/18/18 09:45 - Constitutional Appears: Non-toxic, No Acute Distress - Eye Exam Eye Exam: EOMI, Normal appearance - ENT Exam ENT Exam: Mucous Membranes Moist - Respiratory Exam Respiratory Exam: Rhonchi - Cardiovascular Exam Cardiovascular Exam: REGULAR RHYTHM, +S1, +S2 - GI/Abdominal Exam GI & Abdominal Exam: Soft, Normal Bowel Sounds - Neurological Exam Neurological Exam: Alert, Awake, Oriented x3 Assessment and Plan - Assessment and Plan (Free Text) Assessment: 88 year old female with a past medical history of dyslipidemia, asthma, possible CAD, hypothyroidism who presents with 2 days of worsening cough, dyspnea, and purulent sputum production. Labs and imaging suggest acute bronchitis and possible underlying pneumonia. Plan: Acute bronchitis -Doxy and cefepime started today -Chest X-ray improved -influezna/mycoplasma are negative -legionella pending -procalc is 0.54 -Albuterol, tessalon perles, robitussin-dm -Blood cultures, urine and sputum cultures pending -ID consulted, Boghossian, follow recs -Chest CT pending, lower extremity doppler pending Transaminitis -uncertain etiology, consider hepatic congestion -Abd US negative for anything acute History of [place] -Aspirin 81 -Atorvastatin - hold for transaminitis -Enalapril (hold for now) -Dilitazem 120 CD -Lipid panel and HgbA1c WNL Hypothyroidism -Levothyroxine 100 mcg History of CHF - unspecified type -elevated BNP - mild -Lasix 40 mg PO daily PPX/Diet -SCD -HHD Patient seen and case discussed with attending physician Dr. Delarosa <Govind Delarosa - Last Filed: 04/18/18 13:38> Objective - Vital Signs/Intake and Output Vital Signs (last 24 hours): Temp Pulse Resp BP Pulse Ox 98.1 F 87 19 152/74 H 96 04/17/18 18:00 04/18/18 10:21 04/17/18 18:00 04/18/18 10:23 04/16/18 18:22 Intake and Output: 04/18/18 04/18/18 06:59 18:59 Intake Total 1500 Output Total 2 Balance 1498 - Medications Medications: Current Medications Albuterol Sulfate (Albuterol 0.083% Inhal Jazmin (2.5 Mg/3 Ml) Ud) 2.5 mg INH Q4H PRN PRN Reason: SOB Aspirin (Ecotrin) 81 mg PO DAILY [facility] Last Admin: 04/18/18 10:22 Dose: 81 mg Atorvastatin Calcium (Lipitor) 10 mg PO DIN [facility] Last Admin: 04/16/18 22:26 Dose: 10 mg Benzonatate (Tessalon Perles) 100 mg PO TID [facility] Last Admin: 04/18/18 13:15 Dose: 100 mg Diltiazem HCl (Cardizem Cd) 120 mg PO DAILY [facility] Last Admin: 04/18/18 10:21 Dose: 120 mg Doxycycline Hyclate (Doryx) 100 mg PO Q12 [facility]; Protocol Stop: 04/27/18 22:01 Furosemide (Lasix) 20 mg PO DAILY [facility] Last Admin: 04/18/18 10:23 Dose: 20 mg Guaifenesin/Dextromethorphan (Robitussin Dm) 10 ml PO Q4H [facility] Last Admin: 04/18/18 13:15 Dose: 10 ml Cefepime HCl (Maxipime 1gm) 1 gm in 100 mls @ 100 mls/hr IVPB Q12 [facility]; Protocol Stop: 04/27/18 22:01 Levothyroxine Sodium (Synthroid) 100 mcg PO 0600 [facility] Last Admin: 04/18/18 06:14 Dose: 100 mcg - Labs Labs: 04/18/18 09:45 04/18/18 09:45 Attending/Attestation - Attestation I have personally seen and examined this patient.: Yes I have fully participated in the care of the patient.: Yes I have reviewed all pertinent clinical information, including history, physical exam and plan: Yes Notes (Text): Patient seen and examined; persistence of cough States her symptoms have not improved much Will change Abx as per ID recommendations
--- NOTE | 2018-04-18 15:27 | CT ---
Date of service: 04/18/2018 PROCEDURE: CT Chest without contrast HISTORY: r/o infiltrate COMPARISON: None available. TECHNIQUE: Contiguous axial images were obtained through the chest without intravenous contrast enhancement. Sagittal and coronal reconstructions were performed. Radiation dose: Total exam DLP = 299.71 mGy-cm. This CT exam was performed using one or more of the following dose reduction techniques: Automated exposure control, adjustment of the mA and/or kV according to patient size, and/or use of iterative reconstruction technique. FINDINGS: LUNGS: There is no focal consolidation. Minimal ground-glass interstitial densities are seen. There are scattered small nodules MEDIASTINUM: Unremarkable thoracic aorta. No aneurysm. Normal sized heart. Main pulmonary artery unremarkable. No vascular congestion. No lymphadenopathy. No aortic atherosclerotic calcification. PLEURA: No pleural fluid. No pneumothorax. BONES: No fracture. No destructive lesion. UPPER ABDOMEN: Grossly unremarkable. OTHER FINDINGS: None. IMPRESSION: There is no focal consolidation. Minimal ground-glass interstitial densities are seen. There are scattered small nodules
--- NOTE | 2018-04-18 18:05 | CON ---
DATE OF CONSULTATION: 04/18/2018 The patient was seen earlier today in Room 268 and seen now in Room 268, Bed 2. CHIEF COMPLAINT: Cough for several days. HISTORY OF PRESENT ILLNESS: This is an 88-year-old female with history of asthma, history of coronary artery disease, hypertension, who has been having cough, shortness of breath and fevers and chills. The cough is pleuritic in nature. Last two weeks prior to admission, was given antibiotics as outpatient, she does not remember which antibiotics and without any improvement, was hospitalized and has been given ceftriaxone and azithromycin, again without any improvement. The patient at this time has occasional headaches and no abdominal pain, did have an episode of diarrhea. She is complaining of dysuria and frequency. PAST MEDICAL HISTORY: Significant for asthma, hypertension, coronary artery disease, dyslipidemia, myocardial infarction. PAST SURGICAL HISTORY: Noncontributory. SOCIAL HISTORY: She is not a smoker. MEDICATIONS AT HOME: Reveals the patient to be on Lipitor. ALLERGIES: THE PATIENT HAS NO KNOWN ALLERGIES. REVIEW OF SYSTEMS: A 12-point review of systems is performed. PHYSICAL EXAMINATION: GENERAL: She is in bed, answering questions appropriately. VITAL SIGNS: Temperature of 99.2, heart rate of 96 and heart rate was up to 110, respiratory rate of 20, and blood pressure is 145/70. HEENT: Unremarkable. NECK: Supple. LUNGS: Decreased breath sounds. HEART: Normal S1 and S2. ABDOMEN: Soft and nontender. LABORATORY DATA: Examination reveals a white count of 14,700, hemoglobin of 11. Chemistries reveal the patient's procalcitonin is 0.54, BUN of 22, creatinine of 1.1, glucose is 122. Alk phos is 134. The LFTs are elevated. The urinalysis is noted to 0 to 2 wbc's. Influenza is negative. Mycoplasma is negative. Microbiology reveals the blood cultures are negative. The sputum cultures are pending. Urine cultures are no growth. The patient's initial chest x-ray reveals the patient to have clear lungs and atelectasis in the left lobe. A repeat chest x-ray from this morning is reviewed. However, no official reading is noted. Dr. Govind Delarosa's note is reviewed. The patient had an ultrasound, which reveals the liver is noted and no intrahepatic bile duct dilatation, gallbladder is unremarkable, and no gallstones are seen. The patient's EKG is noted with a QTc of 462. ASSESSMENT AND PLAN: This is an 88-year-old female with coronary artery disease, myocardial infarction, hypertension, dyslipidemia, who was admitted with low-grade fevers, cough, tachycardia, leukocytosis and with a negative chest x-ray initially and now two days in the hospital with repeat chest x-ray probably with sepsis, the community-acquired pneumonia, bronchitis and healthcare-associated pneumonia with an elevated procalcitonin. We will treat the patient with Maxipime and doxycycline. Discontinue the Zithromax, which was ordered. Discontinue the ceftriaxone. Order a CAT scan of the chest. We will order a MRSA screen, pending the sputum cultures. We will order a urine Legionella antigen and CT of the chest and we will make further recommendations. We will trend the procalcitonin. We will follow with you. Andrew Ochoa MD
[2018-04-18] MEDS: Cefepime 1gm in NS 100ml 1 GM/100 ML BAG IVPB SCH (21:40)
[2018-04-18] MEDS: guaiFENesin DM 200 mg-20 mg/10 ml UD PO SCH (21:40)
[2018-04-19] MEDS: guaiFENesin DM 200 mg-20 mg/10 ml UD PO SCH ×6 (01:48→21:42)
[2018-04-19] MEDS: Levothyroxine 100 MCG TAB PO SCH (05:51)
[2018-04-19 06:23] LABS: BASO # 0.03 K/mm3 (0.0-2.0); BASO % 0.3 % (0.0-3.0); EOS # 0.3 (0.0-0.7); GRAN # 7.49 (1.4-6.5); GRAN % 65.6 % (50.0-68.0); HEMOGLOBIN 11.5 g/dL (12.0-16.0); LYMPH # 2.3 (1.2-3.4); LYMPH % 20.4 % (22.0-35.0); MEAN CELL VOLUME 92.4 fl (80.0-105.0); MEAN CORPUSCULAR HEMOGLOBIN 30.1 pg (25.0-35.0); MEAN CORPUSCULAR HGB CONC 32.6 g/dl (31.0-37.0); MONO # 1.2 (0.1-0.6); MONO % 10.7 % (1.0-6.0); RBC 3.82 10^6/uL (3.5-6.1); RED CELL DISTRIBUTION WIDTH 13.8 % (11.5-14.5); WHITE BLOOD COUNT 11.4 10^3/uL (4.5-11.0)
[2018-04-19 06:31] LABS: ALBUMIN 3.6 g/dL (3.0-4.8); CALCIUM 9.3 mg/dL (8.4-10.5)
--- NOTE | 2018-04-19 07:57 | CP.PCM.PN ---
<Dedrick Cazares - Last Filed: 04/19/18 12:49> Subjective - Date & Time of Evaluation Date of Evaluation: 04/19/18 Time of Evaluation: 06:00 - Subjective Subjective: Patient seen and evaluated bedside. No acute issues overnight. Patient states she feels a little better than yesterday. Still complaining of cough and pleuritic chest pain. Patient denies fever, chills, nausea, abdominal pain or anything else. Objective - Vital Signs/Intake and Output Vital Signs (last 24 hours): Temp Pulse Resp BP Pulse Ox 97.7 F 83 20 168/78 H 95 04/19/18 06:00 04/19/18 06:00 04/19/18 06:00 04/19/18 06:00 04/19/18 06:00 Intake and Output: 04/19/18 04/19/18 06:59 18:59 Intake Total 480 Balance 480 - Medications Medications: Current Medications Albuterol Sulfate (Albuterol 0.083% Inhal Jamzin (2.5 Mg/3 Ml) Ud) 2.5 mg INH Q4H PRN PRN Reason: SOB Aspirin (Ecotrin) 81 mg PO DAILY [facility] Last Admin: 04/18/18 10:22 Dose: 81 mg Atorvastatin Calcium (Lipitor) 10 mg PO DIN [facility] Last Admin: 04/16/18 22:26 Dose: 10 mg Benzonatate (Tessalon Perles) 100 mg PO TID [facility] Last Admin: 04/18/18 18:11 Dose: 100 mg Diltiazem HCl (Cardizem Cd) 120 mg PO DAILY [facility] Last Admin: 04/18/18 10:21 Dose: 120 mg Doxycycline Hyclate (Doryx) 100 mg PO Q12 [facility]; Protocol Stop: 04/27/18 22:01 Last Admin: 04/18/18 21:40 Dose: 100 mg Furosemide (Lasix) 20 mg PO DAILY [facility] Last Admin: 04/18/18 10:23 Dose: 20 mg Guaifenesin/Dextromethorphan (Robitussin Dm) 10 ml PO Q4H [facility] Last Admin: 04/19/18 05:51 Dose: 10 ml Cefepime HCl (Maxipime 1gm) 1 gm in 100 mls @ 100 mls/hr IVPB Q12 [facility]; Protocol Stop: 04/27/18 22:01 Last Admin: 04/18/18 21:40 Dose: 100 mls/hr Levothyroxine Sodium (Synthroid) 100 mcg PO 0600 [facility] Last Admin: 04/19/18 05:51 Dose: 100 mcg - Labs Labs: 04/19/18 05:30 04/19/18 05:30 - Constitutional Appears: Non-toxic, No Acute Distress - Head Exam Head Exam: ATRAUMATIC, NORMAL INSPECTION, NORMOCEPHALIC - ENT Exam ENT Exam: Mucous Membranes Moist - Respiratory Exam Respiratory Exam: Rhonchi - Cardiovascular Exam Cardiovascular Exam: +S1, +S2 - GI/Abdominal Exam GI & Abdominal Exam: Soft. absent: Tenderness - Extremities Exam Extremities Exam: absent: Pedal Edema, Tenderness - Neurological Exam Neurological Exam: Alert, Awake, Oriented x3 Assessment and Plan - Assessment and Plan (Free Text) Assessment: 88 year old female with a past medical history of dyslipidemia, asthma, possible CAD, hypothyroidism who presents with 2 days of worsening cough, dyspnea, and purulent sputum production. Patient being treated for HCAP. Plan: Acute bronchitis w underlying HCAP -Doxy and cefepime -influenZa/mycoplasma are negative -legionella pending -procalc is 0.54 -Albuterol, tessalon perles, robitussin-dm -Blood cultures, urine and sputum cultures pending -ID consulted, Boghossian, follow recs -Chest CT shows no focal consolidation but interstitial denisities Transaminitis -trending down -uncertain etiology, consider hepatic congestion -Abd US negative for anything acute -continue to monitor History of [place] -Aspirin 81 mg -Atorvastatin - hold for transaminitis -Enalapril (hold for now) -Dilitazem 120 CD -Lipid panel and HgbA1c WNL Hypothyroidism -Levothyroxine 100 mcg History of CHF - unspecified type -elevated BNP - mild -Lasix 40 mg PO daily PPX/Diet -SCD -HHD <Braulio Martin - Last Filed: 04/23/18 17:19> Objective - Vital Signs/Intake and Output Vital Signs (last 24 hours): Temp Pulse Resp BP Pulse Ox 98 F 73 18 128/70 94 L 04/23/18 06:00 04/23/18 09:25 04/23/18 06:00 04/23/18 09:26 04/23/18 06:00 Intake and Output: 04/23/18 04/23/18 06:59 18:59 Intake Total 720 Balance 720 - Labs Labs: 04/23/18 06:30 04/23/18 06:30 Attending/Attestation - Attestation I have personally seen and examined this patient.: Yes I have fully participated in the care of the patient.: Yes I have reviewed all pertinent clinical information, including history, physical exam and plan: Yes Notes (Text): 04/23/18 17:19 Medical record note made by the resident after discussion with my direction and input after the patient was personally seen and examined by me. I have reviewed the chart and agree that the record accurately reflects by personal performance of the history, physical exam, data review, and medical decision-making, in the course for the patient. I have also personally directed the plan of care.
[2018-04-19] MEDS: diltiaZEM 120 mg/24 Hours CD Cap PO SCH (09:34)
[2018-04-19] MEDS: Cefepime 1gm in NS 100ml 1 GM/100 ML BAG IVPB SCH ×2 (09:36→21:41)
[2018-04-19] MEDS ORDERED: MethylPREDNISolone 40 mg Vial IVP STA (10:02)
--- NOTE | 2018-04-19 15:19 | US ---
HISTORY: Leg pain and swelling. Evaluate for DVT PHYSICIAN(S): Adebayo Elliott MD. TECHNIQUE: Duplex sonography and color-flow Doppler with graded compression were used to evaluate the deep venous systems of both lower extremities. The exam is somewhat limited by body habitus and edema FINDINGS: The visualized deep venous systems of both lower extremities are sonographically normal and compressible. Normal wave forms and augmentation are seen. There is no sonographic evidence for deep venous thrombosis in the visualized segments of both lower extremities. IMPRESSION: No sonographic evidence for deep venous thrombosis in the visualized segments of both lower extremities. Limited study.
[2018-04-19] MEDS: Levalbuterol 0.63 MG/3 ML Inhal Soln UD IH SCH (20:35)
--- NOTE | 2018-04-19 20:56 | PN ---
DATE: 04/19/2018 SUBJECTIVE: The patient is in bed, in no acute distress, nontoxic. OBJECTIVE: VITAL SIGNS: On exam, temperature is 98, blood pressure is 140/70, respiratory rate of 21, heart rate of 111. HEENT: Unremarkable. NECK: Supple. LUNGS: Have decreased breath sounds. HEART: Normal S1, S2. ABDOMEN: Soft. LABORATORY EXAMINATION: Reveals a white count of 11,400, hemoglobin of 11, platelets of 483. BUN of 30, creatinine of 1.2. Procalcitonin is 1.35. Urinalysis is noted and mycoplasma is negative. Urine for Legionella antigen is negative. Influenza is negative. Microbiology reveals the nares MRSA is negative. Urine culture is negative. Sputum cultures is normal azid. The blood cultures are no growth. Review of orders revealed the patient to be on p.o. doxycycline and IV cefepime. ASSESSMENT AND PLAN: This is an 88-year-old female with a history of coronary artery disease, history of asthma, hypertension who was been having shortness of breath, fevers and chills, pleuritic in nature who was admitted with sepsis with what appears to be a community-acquired pneumonia, had a CAT scan of the chest done which reveals no focal consolidation. There is minimal ground glass interstitial densities and scattered small nodules, and patient also had an ultrasound of the lower extremities which showed no evidence of deep venous thrombosis. The patient has not had any fevers in the hospital and just the shortness of breath which has improved and the leukocytosis which has also improved. The patient does have an elevated procalcitonin. We would complete a short course of antibiotics, maybe able to switch to p.o. antibiotics upon discharge. Today is day #2 of Maxipime and on doxycycline. Andrew Ochoa MD
[2018-04-20] MEDS: guaiFENesin DM 200 mg-20 mg/10 ml UD PO SCH ×6 (01:30→21:37)
[2018-04-20] MEDS: Levalbuterol 0.63 MG/3 ML Inhal Soln UD IH SCH ×4 (03:44→20:10)
[2018-04-20] MEDS: Levothyroxine 100 MCG TAB PO SCH (05:40)
[2018-04-20 07:10] LABS: BASO # 0.02 K/mm3 (0.0-2.0); BASO % 0.1 % (0.0-3.0); EOS % 0.1 % (1.5-5.0); GRAN # 12.27 (1.4-6.5); GRAN % 79.1 % (50.0-68.0); HEMOGLOBIN 11.4 g/dL (12.0-16.0); LYMPH # 2.1 (1.2-3.4); LYMPH % 13.3 % (22.0-35.0); MEAN CELL VOLUME 92.6 fl (80.0-105.0); MEAN CORPUSCULAR HEMOGLOBIN 30.1 pg (25.0-35.0); MEAN CORPUSCULAR HGB CONC 32.5 g/dl (31.0-37.0); MEAN PLATELET VOLUME 10.1 fl (7.0-11.0); MONO # 1.1 (0.1-0.6); MONO % 7.4 % (1.0-6.0); RBC 3.79 10^6/uL (3.5-6.1); RED CELL DISTRIBUTION WIDTH 13.7 % (11.5-14.5); WHITE BLOOD COUNT 15.5 10^3/uL (4.5-11.0)
[2018-04-20 07:38] LABS: ALBUMIN 3.7 g/dL (3.0-4.8); CALCIUM 9.7 mg/dL (8.4-10.5)
[2018-04-20] MEDS: Cefepime 1gm in NS 100ml 1 GM/100 ML BAG IVPB SCH ×2 (09:40→21:35)
[2018-04-20] MEDS: diltiaZEM 120 mg/24 Hours CD Cap PO SCH (09:43)
--- NOTE | 2018-04-20 12:49 | CP.PCM.PN ---
Subjective - Date & Time of Evaluation Date of Evaluation: 04/20/18 Time of Evaluation: 10:25 - Subjective Subjective: No fevers, non-toxic. Objective - Vital Signs/Intake and Output Vital Signs (last 24 hours): Temp Pulse Resp BP Pulse Ox 97.8 F 73 17 156/60 H 98 04/20/18 12:00 04/20/18 12:00 04/20/18 12:00 04/20/18 12:00 04/20/18 12:00 Intake and Output: 04/20/18 04/20/18 06:59 18:59 Intake Total 120 Balance 120 - Medications Medications: Current Medications Acetaminophen (Tylenol 325mg Tab) 650 mg PO Q6H PRN PRN Reason: Fever >100.4 F Albuterol Sulfate (Albuterol 0.083% Inhal Jazmin (2.5 Mg/3 Ml) Ud) 2.5 mg INH Q4H PRN PRN Reason: SOB Aspirin (Ecotrin) 81 mg PO DAILY [facility] Last Admin: 04/20/18 09:43 Dose: 81 mg Atorvastatin Calcium (Lipitor) 10 mg PO DIN [facility] Last Admin: 04/16/18 22:26 Dose: 10 mg Benzonatate (Tessalon Perles) 100 mg PO TID [facility] Last Admin: 04/20/18 09:45 Dose: 100 mg Diltiazem HCl (Cardizem Cd) 120 mg PO DAILY [facility] Last Admin: 04/20/18 09:43 Dose: 120 mg Doxycycline Hyclate (Doryx) 100 mg PO Q12 [facility]; Protocol Stop: 04/27/18 22:01 Last Admin: 04/20/18 09:43 Dose: 100 mg Furosemide (Lasix) 20 mg PO DAILY [facility] Last Admin: 04/20/18 09:44 Dose: 20 mg Guaifenesin/Dextromethorphan (Robitussin Dm) 10 ml PO Q4H [facility] Last Admin: 04/20/18 09:50 Dose: 10 ml Cefepime HCl (Maxipime 1gm) 1 gm in 100 mls @ 100 mls/hr IVPB Q12 [facility]; Protocol Stop: 04/27/18 22:01 Last Admin: 04/20/18 09:40 Dose: 100 mls/hr Levalbuterol HCl (Xopenex) 0.63 mg IH [id number] [facility] Last Admin: 04/20/18 07:22 Dose: 0.63 mg Levothyroxine Sodium (Synthroid) 100 mcg PO 0600 [facility] Last Admin: 04/20/18 05:40 Dose: 100 mcg Pantoprazole Sodium (Protonix Ec Tab) 40 mg PO 0600 [facility] Prednisone (Prednisone Tab) 40 mg PO DAILY [facility] Last Admin: 04/20/18 09:45 Dose: 40 mg - Labs Labs: 04/20/18 06:00 04/20/18 06:00 - Constitutional Appears: Chronically Ill - Head Exam Head Exam: NORMAL INSPECTION - Respiratory Exam Respiratory Exam: Decreased Breath Sounds - Cardiovascular Exam Cardiovascular Exam: +S1, +S2 - GI/Abdominal Exam GI & Abdominal Exam: Soft. absent: Tenderness Assessment and Plan - Assessment and Plan (Free Text) Plan: Assessment Sepsis due to community-acquired pneumonia CAD asthma HTN Plan continue Cefepime and Doxycycline day 3 for 5-[address] chest showing opacities will continue to monitor clinically
--- NOTE | 2018-04-20 13:45 | CP.PCM.PN ---
<Malik Buck - Last Filed: 04/20/18 13:38> Subjective - Date & Time of Evaluation Date of Evaluation: 04/20/18 Time of Evaluation: 09:43 - Subjective Subjective: Malik Buck PGY1 Hospital Progress Note Patient seen and examined this morning at bedside. No acute events reported overnight. Continuing to cough, improved from yesterday. Denies CP, SOB, fevers and vomiting. Offers no new complaints today. Will start steroids. Objective - Vital Signs/Intake and Output Vital Signs (last 24 hours): Temp Pulse Resp BP Pulse Ox 97.8 F 73 17 156/60 H 98 04/20/18 12:00 04/20/18 12:00 04/20/18 12:00 04/20/18 12:00 04/20/18 12:00 Intake and Output: 04/20/18 04/20/18 06:59 18:59 Intake Total 120 Balance 120 - Medications Medications: Current Medications Acetaminophen (Tylenol 325mg Tab) 650 mg PO Q6H PRN PRN Reason: Fever >100.4 F Albuterol Sulfate (Albuterol 0.083% Inhal Jazmin (2.5 Mg/3 Ml) Ud) 2.5 mg INH Q4H PRN PRN Reason: SOB Aspirin (Ecotrin) 81 mg PO DAILY [facility] Last Admin: 04/20/18 09:43 Dose: 81 mg Atorvastatin Calcium (Lipitor) 10 mg PO DIN [facility] Last Admin: 04/16/18 22:26 Dose: 10 mg Benzonatate (Tessalon Perles) 100 mg PO TID [facility] Last Admin: 04/20/18 09:45 Dose: 100 mg Diltiazem HCl (Cardizem Cd) 120 mg PO DAILY [facility] Last Admin: 04/20/18 09:43 Dose: 120 mg Doxycycline Hyclate (Doryx) 100 mg PO Q12 [facility]; Protocol Stop: 04/27/18 22:01 Last Admin: 04/20/18 09:43 Dose: 100 mg Furosemide (Lasix) 20 mg PO DAILY [facility] Last Admin: 04/20/18 09:44 Dose: 20 mg Guaifenesin/Dextromethorphan (Robitussin Dm) 10 ml PO Q4H [facility] Last Admin: 04/20/18 09:50 Dose: 10 ml Cefepime HCl (Maxipime 1gm) 1 gm in 100 mls @ 100 mls/hr IVPB Q12 [facility]; Protocol Stop: 04/27/18 22:01 Last Admin: 04/20/18 09:40 Dose: 100 mls/hr Levalbuterol HCl (Xopenex) 0.63 mg IH [id number] [facility] Last Admin: 04/20/18 07:22 Dose: 0.63 mg Levothyroxine Sodium (Synthroid) 100 mcg PO 0600 [facility] Last Admin: 04/20/18 05:40 Dose: 100 mcg Pantoprazole Sodium (Protonix Ec Tab) 40 mg PO 0600 [facility] Prednisone (Prednisone Tab) 40 mg PO DAILY [facility] Last Admin: 04/20/18 09:45 Dose: 40 mg - Labs Labs: 04/20/18 06:00 04/20/18 06:00 - Additional Findings Additional findings: - Constitutional Appears: Non-toxic, No Acute Distress - Head Exam Head Exam: ATRAUMATIC, NORMAL INSPECTION, NORMOCEPHALIC - ENT Exam ENT Exam: Mucous Membranes Moist - Respiratory Exam Respiratory Exam: Rhonchi mild. No respiratory distress, wheezing - Cardiovascular Exam Cardiovascular Exam: +S1, +S2 - GI/Abdominal Exam GI & Abdominal Exam: Soft. absent: Tenderness - Extremities Exam Extremities Exam: absent: Pedal Edema, Tenderness - Neurological Exam Neurological Exam: Alert, Awake, Oriented x3 Assessment and Plan - Assessment and Plan (Free Text) Assessment: 88 year old female with a past medical history of dyslipidemia, asthma, possible CAD, hypothyroidism who presents with 2 days of worsening cough, dyspnea, and purulent sputum production. Patient being treated for HCAP. Plan: Acute bronchitis w underlying HCAP -Doxy and cefepime day 3. Will need 507 days -influenza/mycoplasma/legionella are negative -procalc is 1.35 -predisone 40mg for 5 days. Today is day 1 -WBC elevation likely from steroids. Patient afebrile -Albuterol, tessalon perles, robitussin-dm -Blood cultures shows no growth for 3 days, urine and sputum cultures are negative -ID consulted, Boghossian, follow recs -Chest CT shows no focal consolidation but interstitial denisities Transaminitis -trending down -uncertain etiology, consider hepatic congestion -Abd US negative for anything acute -continue to monitor Hx of CAD -Aspirin 81 mg -Atorvastatin - hold for transaminitis -Dilitazem 120 CD -Lipid panel and HgbA1c WNL Hypothyroidism -Levothyroxine 100 mcg Hx of CHF - unspecified type -elevated BNP - mild -Lasix 40 mg PO daily PPX/Diet -SCD -HHD Patient seen and case discussed with attending, Dr. Martin <Braulio Martin - Last Filed: 04/23/18 17:18> Objective - Vital Signs/Intake and Output Vital Signs (last 24 hours): Temp Pulse Resp BP Pulse Ox 98 F 73 18 128/70 94 L 04/23/18 06:00 04/23/18 09:25 04/23/18 06:00 04/23/18 09:26 04/23/18 06:00 Intake and Output: 04/23/18 04/23/18 06:59 18:59 Intake Total 720 Balance 720 - Labs Labs: 04/23/18 06:30 04/23/18 06:30 Attending/Attestation - Attestation I have personally seen and examined this patient.: Yes I have fully participated in the care of the patient.: Yes I have reviewed all pertinent clinical information, including history, physical exam and plan: Yes Notes (Text): 04/23/18 17:18 Medical record note made by the resident after discussion with my direction and input after the patient was personally seen and examined by me. I have reviewed the chart and agree that the record accurately reflects by personal performance of the history, physical exam, data review, and medical decision-making, in the course for the patient. I have also personally directed the plan of care.
[2018-04-21] MEDS: Levalbuterol 0.63 MG/3 ML Inhal Soln UD IH SCH ×3 (01:26→19:33)
[2018-04-21] MEDS: guaiFENesin DM 200 mg-20 mg/10 ml UD PO SCH ×6 (01:30→20:42)
[2018-04-21] MEDS: Levothyroxine 100 MCG TAB PO SCH (05:08)
[2018-04-21] MEDS: Pantoprazole 40 mg EC Tab PO SCH (05:08)
[2018-04-21 07:00] LABS: BASO # 0.01 K/mm3 (0.0-2.0); BASO % 0.1 % (0.0-3.0); EOS % 0.1 % (1.5-5.0); GRAN # 12.25 (1.4-6.5); GRAN % 78.7 % (50.0-68.0); LYMPH # 2.2 (1.2-3.4); LYMPH % 14.3 % (22.0-35.0); MEAN CORPUSCULAR HEMOGLOBIN 29.5 pg (25.0-35.0); MEAN CORPUSCULAR HGB CONC 31.7 g/dl (31.0-37.0); MEAN PLATELET VOLUME 9.9 fl (7.0-11.0); MONO # 1.1 (0.1-0.6); MONO % 6.8 % (1.0-6.0); RBC 3.73 10^6/uL (3.5-6.1); RED CELL DISTRIBUTION WIDTH 13.7 % (11.5-14.5); WHITE BLOOD COUNT 15.5 10^3/uL (4.5-11.0)
[2018-04-21 07:17] LABS: ALBUMIN 3.6 g/dL (3.0-4.8); CALCIUM 9.7 mg/dL (8.4-10.5)
[2018-04-21] MEDS: Cefepime 1gm in NS 100ml 1 GM/100 ML BAG IVPB SCH (09:40)
[2018-04-21] MEDS: diltiaZEM 120 mg/24 Hours CD Cap PO SCH (09:41)
--- NOTE | 2018-04-21 14:02 | CP.PCM.PN ---
<Malik Buck - Last Filed: 04/21/18 13:58> Subjective - Date & Time of Evaluation Date of Evaluation: 04/21/18 Time of Evaluation: 09:22 - Subjective Subjective: Malik Buck PGY1 [facility] Progress Note Patient seen and examined this morning at bedside. No acute events reported overnight. Cough is improving. Will try two more days of steroids. Denies CP, SOB, fevers and vomiting. Offers no new complaints today. Objective - Vital Signs/Intake and Output Vital Signs (last 24 hours): Temp Pulse Resp BP Pulse Ox 97.8 F 74 20 129/56 L 94 L 04/21/18 06:38 04/21/18 06:38 04/21/18 06:38 04/21/18 09:41 04/21/18 06:38 Intake and Output: 04/21/18 04/21/18 06:59 18:59 Intake Total 180 Balance 180 - Medications Medications: Current Medications Acetaminophen (Tylenol 325mg Tab) 650 mg PO Q6H PRN PRN Reason: Fever >100.4 F Albuterol Sulfate (Albuterol 0.083% Inhal Jazmin (2.5 Mg/3 Ml) Ud) 2.5 mg INH Q4H PRN PRN Reason: SOB Aspirin (Ecotrin) 81 mg PO DAILY [facility] Last Admin: 04/21/18 09:41 Dose: 81 mg Atorvastatin Calcium (Lipitor) 10 mg PO DIN [facility] Last Admin: 04/16/18 22:26 Dose: 10 mg Benzonatate (Tessalon Perles) 100 mg PO TID [facility] Last Admin: 04/21/18 13:18 Dose: 100 mg Diltiazem HCl (Cardizem Cd) 120 mg PO DAILY [facility] Last Admin: 04/21/18 09:41 Dose: 120 mg Doxycycline Hyclate (Doryx) 100 mg PO Q12 [facility]; Protocol Stop: 04/27/18 22:01 Last Admin: 04/21/18 09:41 Dose: 100 mg Furosemide (Lasix) 20 mg PO DAILY [facility] Last Admin: 04/21/18 09:41 Dose: 20 mg Guaifenesin/Codeine Phosphate (Robitussin W/Codeine) 5 ml PO Q4H PRN PRN Reason: Cough and congestion Guaifenesin/Dextromethorphan (Robitussin Dm) 10 ml PO Q4H [facility] Last Admin: 04/21/18 13:18 Dose: 10 ml Cefepime HCl (Maxipime 1gm) 1 gm in 100 mls @ 100 mls/hr IVPB Q12 [facility]; Protocol Stop: 04/27/18 22:01 Last Admin: 04/21/18 09:40 Dose: 100 mls/hr Levalbuterol HCl (Xopenex) 0.63 mg IH [id number] [facility] Last Admin: 04/21/18 07:25 Dose: 0.63 mg Levothyroxine Sodium (Synthroid) 100 mcg PO 0600 [facility] Last Admin: 04/21/18 05:08 Dose: 100 mcg Pantoprazole Sodium (Protonix Ec Tab) 40 mg PO 0600 [facility] Last Admin: 04/21/18 05:08 Dose: 40 mg Prednisone (Prednisone Tab) 40 mg PO DAILY [facility] Last Admin: 04/21/18 09:41 Dose: 40 mg - Labs Labs: 04/21/18 06:00 04/21/18 06:00 - Additional Findings Additional findings: - Constitutional Appears: Non-toxic, No Acute Distress - Head Exam Head Exam: ATRAUMATIC, NORMAL INSPECTION, NORMOCEPHALIC - ENT Exam ENT Exam: Mucous Membranes Moist - Respiratory Exam Respiratory Exam: Rhonchi noted in lung bases - mild. No respiratory distress, wheezing - Cardiovascular Exam Cardiovascular Exam: +S1, +S2 - GI/Abdominal Exam GI & Abdominal Exam: Soft. absent: Tenderness - Extremities Exam Extremities Exam: absent: Pedal Edema, Tenderness - Neurological Exam Neurological Exam: Alert, Awake, Oriented x3 Assessment and Plan - Assessment and Plan (Free Text) Assessment: - Constitutional Appears: Non-toxic, No Acute Distress - Head Exam Head Exam: ATRAUMATIC, NORMAL INSPECTION, NORMOCEPHALIC - ENT Exam ENT Exam: Mucous Membranes Moist - Respiratory Exam Respiratory Exam: Rhonchi mild. No respiratory distress, wheezing - Cardiovascular Exam Cardiovascular Exam: +S1, +S2 - GI/Abdominal Exam GI & Abdominal Exam: Soft. absent: Tenderness - Extremities Exam Extremities Exam: absent: Pedal Edema, Tenderness - Neurological Exam Neurological Exam: Alert, Awake, Oriented x3 Assessment and Plan - Assessment and Plan (Free Text) Assessment: 88 year old female with a past medical history of dyslipidemia, asthma, possible CAD, hypothyroidism who presents with 2 days of worsening cough, dyspnea, and purulent sputum production. Patient being treated for HCAP. Plan: Acute bronchitis vs HCAP -Doxy and cefepime day 4. Will need 5-7 days -predisone 40mg day 3 out of 5 -influenza/mycoplasma/legionella are negative -procalc is 1.35 -WBC elevation likely from steroids. Patient afebrile -Albuterol, tessalon perles, robitussin-dm -Blood cultures shows no growth for 4 days, urine and sputum cultures are negative -ID consulted, Boghossian, follow recs -Chest CT shows no focal consolidation but interstitial denisities Transaminitis -uncertain etiology, consider antibiotics vs hepatic congestion -spoke with ID team about possible alternative therapy -Abd US is unremarkabe -continue to monitor Hx of CAD -Aspirin 81 mg -Atorvastatin - hold for transaminitis -Dilitazem 120 CD -Lipid panel and HgbA1c WNL Hypothyroidism -Levothyroxine 100 mcg Hx of CHF - unspecified type -elevated BNP - mild -Lasix 40 mg PO daily PPX/Diet -SCD -HHD Patient seen and case discussed with attending, Dr. Martin <Braulio Martin - Last Filed: 04/23/18 17:18> Objective - Vital Signs/Intake and Output Vital Signs (last 24 hours): Temp Pulse Resp BP Pulse Ox 98 F 73 18 128/70 94 L 04/23/18 06:00 04/23/18 09:25 04/23/18 06:00 04/23/18 09:26 04/23/18 06:00 Intake and Output: 04/23/18 04/23/18 06:59 18:59 Intake Total 720 Balance 720 - Labs Labs: 04/23/18 06:30 04/23/18 06:30 Attending/Attestation - Attestation I have personally seen and examined this patient.: Yes I have fully participated in the care of the patient.: Yes I have reviewed all pertinent clinical information, including history, physical exam and plan: Yes Notes (Text): 04/23/18 17:18 Medical record note made by the resident after discussion with my direction and input after the patient was personally seen and examined by me. I have reviewed the chart and agree that the record accurately reflects by personal performance of the history, physical exam, data review, and medical decision-making, in the course for the patient. I have also personally directed the plan of care.
--- NOTE | 2018-04-21 18:38 | PN ---
DATE: 04/21/2018 SUBJECTIVE: The patient is in bed in no acute distress. PHYSICAL EXAMINATION: VITAL SIGNS: The patient's temperature is 98, blood pressure is 131/70, respiratory 18. HEENT: Unremarkable. NECK: Supple. CARDIOPULMONARY: Normal S1, S2. LUNGS: Have decreased breath sounds. ABDOMEN: Soft. LABORATORY DATA: Laboratory examination reveals a white count is 15,500, hemoglobin 11, platelets of 568. Chemistries reveals a BUN of 31, creatinine of 1.1. LFTs are increased to respectively with a procalcitonin of 1.35 and the urinalysis is reviewed. Serology reveals influenza is negative. Legionella is negative. Mycoplasma is negative. Blood cultures have no growth. Sputum cultures negative. MRSA screen is negative. Urine culture and sputum cultures are negative. MEDICATIONS: Review of medications reveals the patient to be on doxycycline and cefepime. ASSESSMENT AND PLAN: This is an 88-year-old female with sepsis secondary to community-acquired pneumonia. The patient with coronary artery disease, asthma, hypertension, day #4 of doxycycline and cefepime. Because both doxycycline and cefepime may cause an increase in LFTs. We will discontinue both of them. The patient is also on prednisone. Review of EKG reveals a QTc of 462. The patient had a CAT scan of the chest on the 04/18/2018. No focal consolidation, ground-glass interstitial densities. We will discontinue the antibiotics. The patient has had 4 days of antibiotics and at this point with a leukocytosis which probably is contributory to the prednisone and we will discontinue the antibiotics at this point. I will follow closely with you. We will repeat LFTs. Andrew Ochoa MD
[2018-04-22] MEDS: Levalbuterol 0.63 MG/3 ML Inhal Soln UD IH SCH ×4 (01:02→20:06)
[2018-04-22] MEDS: Pantoprazole 40 mg EC Tab PO SCH (05:13)
[2018-04-22] MEDS: Levothyroxine 100 MCG TAB PO SCH (05:13)
[2018-04-22 09:30] LABS: BASO # 0.01 K/mm3 (0.0-2.0); BASO % 0.1 % (0.0-3.0); EOS # 0.1 (0.0-0.7); EOS % 0.4 % (1.5-5.0); GRAN # 10.27 (1.4-6.5); HEMOGLOBIN 10.6 g/dL (12.0-16.0); LYMPH # 2.6 (1.2-3.4); LYMPH % 18.7 % (22.0-35.0); MEAN CELL VOLUME 94.6 fl (80.0-105.0); MEAN CORPUSCULAR HEMOGLOBIN 29.9 pg (25.0-35.0); MEAN CORPUSCULAR HGB CONC 31.5 g/dl (31.0-37.0); MEAN PLATELET VOLUME 9.8 fl (7.0-11.0); MONO % 6.8 % (1.0-6.0); RBC 3.55 10^6/uL (3.5-6.1); WHITE BLOOD COUNT 13.9 10^3/uL (4.5-11.0)
[2018-04-22 09:40] LABS: ALBUMIN 3.5 g/dL (3.0-4.8); CALCIUM 9.4 mg/dL (8.4-10.5)
[2018-04-22] MEDS: diltiaZEM 120 mg/24 Hours CD Cap PO SCH (10:22)
[2018-04-22] MEDS: guaiFENesin DM 200 mg-20 mg/10 ml UD PO SCH (10:22)
--- NOTE | 2018-04-22 10:47 | CP.PCM.PN ---
Subjective - Date & Time of Evaluation Date of Evaluation: 04/22/18 Time of Evaluation: 07:10 - Subjective Subjective: Patient seen and examined at bedside. Patient resting comfortably. Patient admits to still having cough. Denies chest pain, shortness of breath, fever, chills. Objective - Vital Signs/Intake and Output Vital Signs (last 24 hours): Temp Pulse Resp BP Pulse Ox 98 F 80 18 147/80 99 04/22/18 06:00 04/22/18 10:22 04/22/18 06:00 04/22/18 10:22 04/22/18 06:00 Intake and Output: 04/22/18 04/22/18 06:59 18:59 Intake Total 600 Balance 600 - Medications Medications: Current Medications Acetaminophen (Tylenol 325mg Tab) 650 mg PO Q6H PRN PRN Reason: Fever >100.4 F Albuterol Sulfate (Albuterol 0.083% Inhal Jazmin (2.5 Mg/3 Ml) Ud) 2.5 mg INH Q4H PRN PRN Reason: SOB Aspirin (Ecotrin) 81 mg PO DAILY [facility] Last Admin: 04/22/18 10:21 Dose: 81 mg Atorvastatin Calcium (Lipitor) 10 mg PO DIN [facility] Last Admin: 04/16/18 22:26 Dose: 10 mg Benzonatate (Tessalon Perles) 100 mg PO TID [facility] Last Admin: 04/22/18 10:21 Dose: 100 mg Diltiazem HCl (Cardizem Cd) 120 mg PO DAILY [facility] Last Admin: 04/22/18 10:22 Dose: 120 mg Furosemide (Lasix) 20 mg PO DAILY [facility] Last Admin: 04/22/18 10:21 Dose: 20 mg Guaifenesin/Codeine Phosphate (Robitussin W/Codeine) 5 ml PO Q4H PRN PRN Reason: Cough and congestion Guaifenesin/Dextromethorphan (Robitussin Dm) 10 ml PO Q4H [facility] Last Admin: 04/22/18 10:22 Dose: 10 ml Levalbuterol HCl (Xopenex) 0.63 mg IH [id number] [facility] Last Admin: 04/22/18 07:51 Dose: 0.63 mg Levothyroxine Sodium (Synthroid) 100 mcg PO 0600 [facility] Last Admin: 01/09/19 05:13 Dose: 100 mcg Pantoprazole Sodium (Protonix Ec Tab) 40 mg PO 0600 [facility] Last Admin: 04/22/18 05:13 Dose: 40 mg Prednisone (Prednisone Tab) 40 mg PO DAILY [facility] Last Admin: 04/22/18 10:21 Dose: 40 mg - Labs Labs: 04/22/18 09:15 04/22/18 09:15 - Constitutional Appears: Non-toxic, No Acute Distress - Respiratory Exam Respiratory Exam: Decreased Breath Sounds, NORMAL BREATHING PATTERN. absent: Rales, Rhonchi, Wheezes - Cardiovascular Exam Cardiovascular Exam: RRR, +S1, +S2 - GI/Abdominal Exam GI & Abdominal Exam: Soft, Normal Bowel Sounds. absent: Tenderness - Extremities Exam Extremities Exam: Normal Inspection. absent: Pedal Edema - Neurological Exam Neurological Exam: Alert, Awake, Oriented x3 - Psychiatric Exam Psychiatric exam: Normal Affect, Normal Mood - Skin Skin Exam: Intact, Normal Color, Warm Assessment and Plan - Assessment and Plan (Free Text) Plan: Sepsis secondary to community acquired pneumonia Hx of CAD Hx of Asthma Hx of HTN Plan: Patient s/p 4 days of Doxycycline and Cefepime Continue to monitor off of antibiotics LFTs still increasing CT chest reviewed, demonstrates no focal consolidation, but interstitial densities MRSA screen negative Blood, sputum, and urine cultures negative Francia, PGY-3
[2018-04-22 12:06] LABS: TROPONIN I < 0.01 ng/mL
--- NOTE | 2018-04-22 15:12 | CP.PCM.PN ---
<Malik Buck - Last Filed: 04/22/18 15:46> Subjective - Date & Time of Evaluation Date of Evaluation: 04/22/18 Time of Evaluation: 11:20 - Subjective Subjective: Malik Buck PGY1 Hospital Progress Note Patient seen and examined this morning at bedside. No acute events reported overnight. Continuing to have a dry cough. Admits to mild chest comfort, will get EKG and troponin. Offers no other complaints today. Objective - Vital Signs/Intake and Output Vital Signs (last 24 hours): Temp Pulse Resp BP Pulse Ox 98.0 F 76 20 133/63 97 04/22/18 14:00 04/22/18 14:00 04/22/18 14:00 04/22/18 14:00 04/22/18 14:00 Intake and Output: 04/22/18 04/22/18 06:59 18:59 Intake Total 600 Balance 600 - Medications Medications: Current Medications Acetaminophen (Tylenol 325mg Tab) 650 mg PO Q6H PRN PRN Reason: Fever >100.4 F Albuterol Sulfate (Albuterol 0.083% Inhal Jazmin (2.5 Mg/3 Ml) Ud) 2.5 mg INH Q4H PRN PRN Reason: SOB Aspirin (Ecotrin) 81 mg PO DAILY [facility] Last Admin: 04/22/18 10:21 Dose: 81 mg Atorvastatin Calcium (Lipitor) 10 mg PO DIN [facility] Last Admin: 04/16/18 22:26 Dose: 10 mg Benzonatate (Tessalon Perles) 100 mg PO TID [facility] Last Admin: 04/22/18 10:21 Dose: 100 mg Diltiazem HCl (Cardizem Cd) 120 mg PO DAILY [facility] Last Admin: 04/22/18 10:22 Dose: 120 mg Furosemide (Lasix) 20 mg PO DAILY [facility] Last Admin: 04/22/18 10:21 Dose: 20 mg Guaifenesin/Codeine Phosphate (Robitussin W/Codeine) 5 ml PO Q4H PRN PRN Reason: Cough and congestion Levalbuterol HCl (Xopenex) 0.63 mg IH [id number] [facility] Last Admin: 04/22/18 13:44 Dose: 0.63 mg Levothyroxine Sodium (Synthroid) 100 mcg PO 0600 [facility] Last Admin: 04/22/18 05:13 Dose: 100 mcg Pantoprazole Sodium (Protonix Ec Tab) 40 mg PO 0600 [facility] Last Admin: 04/22/18 05:13 Dose: 40 mg Prednisone (Prednisone Tab) 40 mg PO DAILY [facility] Last Admin: 04/22/18 10:21 Dose: 40 mg - Labs Labs: 04/22/18 09:15 04/22/18 09:15 - Additional Findings Additional findings: - Constitutional Appears: Non-toxic, No Acute Distress - Head Exam Head Exam: ATRAUMATIC, NORMAL INSPECTION, NORMOCEPHALIC - ENT Exam ENT Exam: Mucous Membranes Moist - Respiratory Exam Respiratory Exam: Rhonchi mild. No respiratory distress, wheezing - Cardiovascular Exam Cardiovascular Exam: +S1, +S2, mild tenderness to chest palpation - GI/Abdominal Exam GI & Abdominal Exam: Soft. absent: Tenderness - Extremities Exam Extremities Exam: absent: Pedal Edema, Tenderness - Neurological Exam Neurological Exam: Alert, Awake, Oriented x3 Assessment and Plan - Assessment and Plan (Free Text) Assessment: 88 year old female with a past medical history of dyslipidemia, asthma, possible CAD, hypothyroidism who presents with 2 days of worsening cough, dyspnea, and purulent sputum production. Plan: Chest discomfort -EKG shows NSR, no ST changes -troponin <0.01 -unlikely anginal in nature Acute bronchitis vs HCAP -completed 4 day course of doxycycline and cefipime -predisone 40mg day 4 out of 5 -robitssuin with codeine prn -influenza/mycoplasma/legionella are negative -procalc is 1.35 on 04/18/18 -WBC elevation likely from steroids. Patient afebrile -Albuterol, tessalon perles, robitussin-dm -Blood cultures shows no growth for 5 days, urine and sputum cultures are negative -ID consulted, Boghossian, follow recs -Chest CT shows no focal consolidation but interstitial denisities Transaminitis -uncertain etiology, consider antibiotics vs hepatic congestion -antibiotic course completed -Abd US is unremarkabe -hepatitis panel pending Hx of CAD -Aspirin 81 mg -Atorvastatin - hold for transaminitis -Dilitazem 120 CD -Lipid panel and HgbA1c WNL Hypothyroidism -Levothyroxine 100 mcg Hx of CHF - unspecified type -elevated BNP - mild -Lasix 40 mg PO daily PPX/Diet -SCD -HHD Patient seen and case discussed with attending, Dr. Martin <Braulio Martin - Last Filed: 04/23/18 17:18> Objective - Vital Signs/Intake and Output Vital Signs (last 24 hours): Temp Pulse Resp BP Pulse Ox 98 F 73 18 128/70 94 L 04/23/18 06:00 04/23/18 09:25 04/23/18 06:00 04/23/18 09:26 04/23/18 06:00 Intake and Output: 04/23/18 04/23/18 06:59 18:59 Intake Total 720 Balance 720 - Labs Labs: 04/23/18 06:30 04/23/18 06:30 Attending/Attestation - Attestation I have personally seen and examined this patient.: Yes I have fully participated in the care of the patient.: Yes I have reviewed all pertinent clinical information, including history, physical exam and plan: Yes Notes (Text): 04/23/18 17:17 Medical record note made by the resident after discussion with my direction and input after the patient was personally seen and examined by me. I have reviewed the chart and agree that the record accurately reflects by personal performance of the history, physical exam, data review, and medical decision-making, in the course for the patient. I have also personally directed the plan of care.
[2018-04-22] MEDS: guaiFENesin-Codeine 100-10mg/5ml Syrup (5 ml) UD PO PRN (15:42)
[2018-04-22 17:17] LABS: HEPATITIS B SURFACE AG Negative (NEGATIVE)
[2018-04-22 17:23] LABS: HEPATITIS A IGM NEGATIVE (NEGATIVE); HEPATITIS B CORE AB NEGATIVE (NEGATIVE)
[2018-04-22 17:34] LABS: HEPATITIS C ANTIBODY NEGATIVE (NEGATIVE)
--- NOTE | 2018-04-22 18:46 | CARD ---
APPROVED REPORT Date of service: 04/22/2018 EKG Measurement Heart [id number] <Conclusion> Sinus rhythm with short [place] Right bundle branch block Abnormal ECG
[2018-04-23] MEDS: Levalbuterol 0.63 MG/3 ML Inhal Soln UD IH SCH ×3 (01:13→13:40)
[2018-04-23] MEDS: Pantoprazole 40 mg EC Tab PO SCH (07:04)
[2018-04-23] MEDS: Levothyroxine 100 MCG TAB PO SCH (07:04)
[2018-04-23 07:23] LABS: EOS % 0.2 % (1.5-5.0); GRAN # 9.24 (1.4-6.5); GRAN % 72.9 % (50.0-68.0); HEMOGLOBIN 10.2 g/dL (12.0-16.0); LYMPH # 2.4 (1.2-3.4); LYMPH % 18.6 % (22.0-35.0); MEAN CELL VOLUME 94.3 fl (80.0-105.0); MEAN CORPUSCULAR HEMOGLOBIN 30.4 pg (25.0-35.0); MEAN CORPUSCULAR HGB CONC 32.2 g/dl (31.0-37.0); MEAN PLATELET VOLUME 9.9 fl (7.0-11.0); MONO # 1.1 (0.1-0.6); MONO % 8.3 % (1.0-6.0); RBC 3.36 10^6/uL (3.5-6.1); WHITE BLOOD COUNT 12.7 10^3/uL (4.5-11.0)
[2018-04-23 07:49] LABS: ALB/GLOB RATIO 1.1 (1.1-1.8); ALBUMIN 3.3 g/dL (3.0-4.8); ALT/SGPT 232 U/L (7-56); AST/SGOT 132 U/L (14-36); BLOOD UREA NITROGEN 32 mg/dL (7-21); CALCIUM 9.4 mg/dL (8.4-10.5); GFR NON-AFRICAN AMERICAN 53
[2018-04-23] MEDS: guaiFENesin-Codeine 100-10mg/5ml Syrup (5 ml) UD PO PRN (08:50)
[2018-04-23 08:57] VITALS: BP 128/70; PULSE 73; RESP 18; TEMP 98; O2SAT 94
[2018-04-23] MEDS: diltiaZEM 120 mg/24 Hours CD Cap PO SCH (09:25)
--- NOTE | 2018-04-23 15:12 | CP.PCM.DIS ---
<Malik Buck - Last Filed: 04/23/18 15:13> Provider - Provider Date of Admission: 04/19/18 09:28 Attending physician: Braulio Martin MD Consults: 04/18/18 09:59 Physician Consult Routine Comment: Consulting Provider: Andrew Ochoa Consulting Physician: Andrew Ochoa Reason for Consult: pna Time Spent in preparation of Discharge (in minutes): 35 Hospital Course - Lab Results Lab Results: Micro Results 04/21/18 23:11 Sputum Gram Stain - Final 04/16/18 15:00 Blood Blood Culture - Final NO GROWTH AFTER 5 DAYS 04/16/18 15:30 Blood Blood Culture - Final NO GROWTH AFTER 5 DAYS 04/16/18 15:30 Blood Gram Stain - Final TEST NOT PERFORMED 04/16/18 22:50 Sputum Gram Stain - Final 04/16/18 22:50 Sputum Sputum Culture - Final NORMAL ORAL JODI 04/18/18 11:33 Naris MRSA Culture (Admit) - Final MRSA NOT DETECTED 04/17/18 00:30 Urine,Clean Catch Urine Culture - Final No Growth (<1,000 CFU/ML) Most Recent Lab Values WBC 12.7 10^3/uL (4.5-11.0) H 04/23/18 06:30 RBC 3.36 10^6/uL (3.5-6.1) L 04/23/18 06:30 Hgb 10.2 g/dL (12.0-16.0) L 04/23/18 06:30 Hct 31.7 % (36.0-48.0) L 04/23/18 06:30 MCV 94.3 fl (80.0-105.0) 04/23/18 06:30 MCH 30.4 pg (25.0-35.0) 04/23/18 06:30 MCHC 32.2 g/dl (31.0-37.0) 04/23/18 06:30 RDW 14.0 % (11.5-14.5) 04/23/18 06:30 Plt Count 532 10^3/uL (120.0-450.0) H 04/23/18 06:30 MPV 9.9 fl (7.0-11.0) 04/23/18 06:30 Gran % 72.9 % (50.0-68.0) H 04/23/18 06:30 Lymph % (Auto) 18.6 % (22.0-35.0) L 04/23/18 06:30 Wake % (Auto) 8.3 % (1.0-6.0) H 04/23/18 06:30 Eos % (Auto) 0.2 % (1.5-5.0) L 04/23/18 06:30 Baso % (Auto) 0.0 % (0.0-3.0) 04/23/18 06:30 Gran # 9.24 (1.4-6.5) H 04/23/18 06:30 Lymph # (Auto) 2.4 (1.2-3.4) 04/23/18 06:30 Wake # (Auto) 1.1 (0.1-0.6) H 04/23/18 06:30 Eos # (Auto) 0.0 (0.0-0.7) 04/23/18 06:30 Baso # (Auto) 0.00 K/mm3 (0.0-2.0) 04/23/18 06:30 Sodium 140 mmol/L (132-148) 04/23/18 06:30 Potassium 5.0 mmol/L (3.6-5.0) 04/23/18 06:30 Chloride 107 mmol/L (98-107) 04/23/18 06:30 Carbon Dioxide 29 mmol/L (21-33) 04/23/18 06:30 Anion Gap 9 (10-20) L 04/23/18 06:30 BUN 32 mg/dL (7-21) H 04/23/18 06:30 Creatinine 1.0 mg/dl (0.7-1.2) 04/23/18 06:30 Est GFR ( Amer) > 60 04/23/18 06:30 Est GFR (Non-Af Amer) 53 04/23/18 06:30 POC Glucose (mg/dL) 129 mg/dL (65-110) H 04/17/18 00:51 Random Glucose 99 mg/dL (70-110) 04/23/18 06:30 Hemoglobin A1c 5.8 % (4.2-6.5) 04/16/18 17:00 Calcium 9.4 mg/dL (8.4-10.5) 04/23/18 06:30 Phosphorus 4.0 mg/dL (2.5-4.5) 04/21/18 06:00 Magnesium 1.8 mg/dL (1.7-2.2) 04/21/18 06:00 Total Bilirubin 0.2 mg/dL (0.2-1.3) 04/23/18 06:30 AST 132 U/L (14-36) H 04/23/18 06:30 ALT 232 U/L (7-56) H 04/23/18 06:30 Alkaline Phosphatase 87 U/L (38-126) 04/23/18 06:30 Lactate Dehydrogenase 715 U/L (333-699) H 04/22/18 11:00 Total Creatine Kinase 47 U/L (35-230) 04/22/18 11:00 Troponin I < 0.01 ng/mL 04/22/18 11:00 NT-Pro-B Natriuret Pep 706 pg/mL (0-450) H 04/16/18 15:52 Total Protein 6.4 g/dL (5.8-8.3) 04/23/18 06:30 Albumin 3.3 g/dL (3.0-4.8) 04/23/18 06:30 Globulin 3.1 gm/dL 04/23/18 06:30 Albumin/Globulin Ratio 1.1 (1.1-1.8) 04/23/18 06:30 Triglycerides 118 mg/dL (35-160) 04/16/18 17:00 Cholesterol 132 mg/dL (130-200) 04/16/18 17:00 LDL Cholesterol Direct 68 mg/dL (0-129) 04/16/18 17:00 HDL Cholesterol 28 mg/dL (29-60) L 04/16/18 17:00 Procalcitonin 1.35 NG/ML (0.19-0.49) H 04/18/18 11:00 Free T4 1.15 ng/dL (0.78-2.19) 04/17/18 07:00 TSH 3rd Generation 2.58 mIU/mL (0.46-4.68) 04/17/18 07:00 Urine Color Yellow (YELLOW) 04/17/18 00:30 Urine Appearance Clear (CLEAR) 04/17/18 00:30 Urine pH 6.0 (4.7-8.0) 04/17/18 00:30 Ur Specific Whiting 1.025 (1.005-1.035) 04/17/18 00:30 Urine Protein Trace mg/dL (<30 mg/dL) H 04/17/18 00:30 Urine Glucose (UA) Negative mg/dL (NEGATIVE) 04/17/18 00:30 Urine Ketones Negative mg/dL (NEGATIVE) 04/17/18 00:30 Urine Blood Small (NEGATIVE) H 04/17/18 00:30 Urine Nitrate Negative (NEGATIVE) 04/17/18 00:30 Urine Bilirubin Negative (NEGATIVE) 04/17/18 00:30 Urine Urobilinogen 0.2 E.U./dL (<1 E.U./dL) 04/17/18 00:30 Ur Leukocyte Esterase Negative Tina/uL (NEGATIVE) 04/17/18 00:30 Urine RBC 1 - 3 /hpf (0-2) H 04/17/18 00:30 Urine WBC 0 - 2 /hpf (0-6) 04/17/18 00:30 Ur Epithelial Cells 1 - 3 /hpf (0-5) 04/17/18 00:30 Urine Bacteria Few /hpf (NONE) 04/17/18 00:30 Hepatitis A IgM Ab Negative (NEGATIVE) 04/22/18 11:00 Hep Bs Antigen Negative (NEGATIVE) 04/22/18 11:00 Hep B Core IgM Ab Negative (NEGATIVE) 04/22/18 11:00 Hepatitis C Antibody Negative (NEGATIVE) 04/22/18 11:00 Influenza Typ A,B (EIA) Negative for flu a/b (NEGATIVE) 04/16/18 15:52 Ur L.pneumophila Ag Negative (NEGATIVE) 04/18/18 11:24 Mycoplasma pneumon IgM Negative (NEGATIVE) 04/16/18 17:00 Ur Strep pneumoniae Ag Not detected (Not Detected) 04/18/18 11:24 - Hospital Course Hospital Course: Upon admission, 88 year old Ukrainian speaking female with a past medical history of asthma, dyslipidemia, hypothyroidism, and possible CAD who presented with 2 weeks of cough and congestion with 2 days of worsening dyspnea, cough, purulent sputum production, low grade fever, abdominal pain and polyruria. She denies any alleviating or exacerbating factors. She denies sore throat. She is from [place] and was visiting family for the holiday season. She denies any sick contacts, diarrhea, vomiting, nausea. She reports getting sick whenever the seasons change. During hospital course, CXR showed no active disease and CT chest showed interstitial densities. She was started on a 5 day course of prednisone 40mg which she completed and she completed 4 day course of doxyxycline and cefipime. Influenza, mycoplasma, and legionella were negative. Procalc noted to be elevated at 1.35. Blood culture showed no growth for 5 days and urine and sputum cultures were negative as well. She was given albuterol, tessalon perles and robitussin-dm later switch to robitussin-codeine for her cough. She was noted to have transaminitis liekly 2/2 to her antibiotics, abdominal US was unremarkable and hepatitis panel was negative. For her history of CAD, she was continued on aspirin and continued on diltiazem. Statin was held due to transaminitis and instructed to follow up with primary doctor for LFT's and medication refill. Patient agreed with discharge today Discharge Exam - Additional Findings Additional findings: - Constitutional Appears: Non-toxic, No Acute Distress - Head Exam Head Exam: ATRAUMATIC, NORMAL INSPECTION, NORMOCEPHALIC - ENT Exam ENT Exam: Mucous Membranes Moist - Respiratory Exam Respiratory Exam: Rhonchi minimal. No respiratory distress, wheezing, accessory muscle use - Cardiovascular Exam Cardiovascular Exam: +S1, +S2, mild tenderness to chest palpation - GI/Abdominal Exam GI & Abdominal Exam: Soft. absent: Tenderness - Extremities Exam Extremities Exam: absent: Pedal Edema, Tenderness - Neurological Exam Neurological Exam: Alert, Awake, Oriented x3 Discharge Plan - Discharge Medications Prescriptions: RX: Albuterol 0.083% [Albuterol 0.083% Inhal Jazmin (2.5 mg/3 ml) UD] 2.5 mg INH Q4H PRN #1 neb PRN Reason: SOB RX: Aspirin [Ecotrin] 81 mg PO DAILY #30 tabec RX: Benzonatate [Tessalon Perles] 100 mg PO TID #30 sgl Budesonide/Formoterol Fumarate [Symbicort] 1 aer IH Q12 #1 aer RX: diltiaZEM CD [Cardizem CD] 120 mg PO DAILY #14 cap RX: Furosemide [Lasix] 20 mg PO DAILY #14 tab RX: guaiFENesin/Codeine [Robitussin w/Codeine] 5 ml PO Q4H PRN #1 udc PRN Reason: Cough And Congestion Ibuprofen [Motrin Tab] 200 mg PO Q6 PRN #15 tab PRN Reason: Pain, Moderate (4-7) RX: Levothyroxine [Synthroid] 100 mcg PO 0600 #14 tab - Follow Up Plan Condition: FAIR Disposition: HOME/ ROUTINE Instructions: Preventing Falls in the Older Adult, Asthma, Adult (DC), High Blood Pressure (DC), Pneumonia, Adult (DC), Wheezing, Shortness of Breath (Dyspnea) (DC), Cough, Adult (DC), Coronary Heart Disease (DC), Liver Function Test Additional Instructions: Please follow up with PMD, Dr. jeffries in 5-7 days. You will need to do repeat blood work in 1 week to evaluate for liver function enzymes, which were high in the hospital. Please do not take any Tylenol. Please hold you lipitor until told to resume by your doctor. You will take motrin for moderate pain. You have been given a script for robit ussin with codein and tessalon perles for your cough. You have been given a script for albuterol and symbicort for your asthma. Please continue diltiazem and lasix for your blood pressure. Please continue taking aspirin daily. Please continue synthroid for your hypothyroidism. Do not take until you get repeat LFT's from your doctor and instructed to do so by your doctor. Please get refills for all your medications from your primary care doctor. Please return to nearest ED if new of worsening symptoms. <Braulio Martin - Last Filed: 04/23/18 17:17> Provider - Provider Date of Admission: 04/19/18 09:28 Attending physician: Braulio Martin MD Consults: 04/18/18 09:59 Physician Consult Routine Comment: Consulting Provider: Andrew Ochoa Consulting Physician: Andrew Ochoa Reason for Consult: pna Hospital Course - Lab Results Lab Results: Micro Results 04/21/18 23:11 Sputum Gram Stain - Final 04/16/18 15:00 Blood Blood Culture - Final NO GROWTH AFTER 5 DAYS 04/16/18 15:30 Blood Blood Culture - Final NO GROWTH AFTER 5 DAYS 04/16/18 15:30 Blood Gram Stain - Final TEST NOT PERFORMED 04/16/18 22:50 Sputum Gram Stain - Final 04/16/18 22:50 Sputum Sputum Culture - Final NORMAL ORAL JODI 04/18/18 11:33 Naris MRSA Culture (Admit) - Final MRSA NOT DETECTED 04/17/18 00:30 Urine,Clean Catch Urine Culture - Final No Growth (<1,000 CFU/ML) Most Recent Lab Values WBC 12.7 10^3/uL (4.5-11.0) H 04/23/18 06:30 RBC 3.36 10^6/uL (3.5-6.1) L 04/23/18 06:30 Hgb 10.2 g/dL (12.0-16.0) L 04/23/18 06:30 Hct 31.7 % (36.0-48.0) L 04/23/18 06:30 MCV 94.3 fl (80.0-105.0) 04/23/18 06:30 MCH 30.4 pg (25.0-35.0) 04/23/18 06:30 MCHC 32.2 g/dl (31.0-37.0) 04/23/18 06:30 RDW 14.0 % (11.5-14.5) 04/23/18 06:30 Plt Count 532 10^3/uL (120.0-450.0) H 04/23/18 06:30 MPV 9.9 fl (7.0-11.0) 04/23/18 06:30 Gran % 72.9 % (50.0-68.0) H 04/23/18 06:30 Lymph % (Auto) 18.6 % (22.0-35.0) L 04/23/18 06:30 Wake % (Auto) 8.3 % (1.0-6.0) H 04/23/18 06:30 Eos % (Auto) 0.2 % (1.5-5.0) L 04/23/18 06:30 Baso % (Auto) 0.0 % (0.0-3.0) 04/23/18 06:30 Gran # 9.24 (1.4-6.5) H 04/23/18 06:30 Lymph # (Auto) 2.4 (1.2-3.4) 04/23/18 06:30 Wake # (Auto) 1.1 (0.1-0.6) H 04/23/18 06:30 Eos # (Auto) 0.0 (0.0-0.7) 04/23/18 06:30 Baso # (Auto) 0.00 K/mm3 (0.0-2.0) 04/23/18 06:30 Sodium 140 mmol/L (132-148) 04/23/18 06:30 Potassium 5.0 mmol/L (3.6-5.0) 04/23/18 06:30 Chloride 107 mmol/L (98-107) 04/23/18 06:30 Carbon Dioxide 29 mmol/L (21-33) 04/23/18 06:30 Anion Gap 9 (10-20) L 04/23/18 06:30 BUN 32 mg/dL (7-21) H 04/23/18 06:30 Creatinine 1.0 mg/dl (0.7-1.2) 04/23/18 06:30 Est GFR ( Amer) > 60 04/23/18 06:30 Est GFR (Non-Af Amer) 53 04/23/18 06:30 POC Glucose (mg/dL) 129 mg/dL (65-110) H 04/17/18 00:51 Random Glucose 99 mg/dL (70-110) 04/23/18 06:30 Hemoglobin A1c 5.8 % (4.2-6.5) 04/16/18 17:00 Calcium 9.4 mg/dL (8.4-10.5) 04/23/18 06:30 Phosphorus 4.0 mg/dL (2.5-4.5) 04/21/18 06:00 Magnesium 1.8 mg/dL (1.7-2.2) 04/21/18 06:00 Total Bilirubin 0.2 mg/dL (0.2-1.3) 04/23/18 06:30 AST 132 U/L (14-36) H 04/23/18 06:30 ALT 232 U/L (7-56) H 04/23/18 06:30 Alkaline Phosphatase 87 U/L (38-126) 04/23/18 06:30 Lactate Dehydrogenase 715 U/L (333-699) H 04/22/18 11:00 Total Creatine Kinase 47 U/L (35-230) 04/22/18 11:00 Troponin I < 0.01 ng/mL 04/22/18 11:00 NT-Pro-B Natriuret Pep 706 pg/mL (0-450) H 04/16/18 15:52 Total Protein 6.4 g/dL (5.8-8.3) 04/23/18 06:30 Albumin 3.3 g/dL (3.0-4.8) 04/23/18 06:30 Globulin 3.1 gm/dL 04/23/18 06:30 Albumin/Globulin Ratio 1.1 (1.1-1.8) 04/23/18 06:30 Triglycerides 118 mg/dL (35-160) 04/16/18 17:00 Cholesterol 132 mg/dL (130-200) 04/16/18 17:00 LDL Cholesterol Direct 68 mg/dL (0-129) 04/16/18 17:00 HDL Cholesterol 28 mg/dL (29-60) L 04/16/18 17:00 Procalcitonin 1.35 NG/ML (0.19-0.49) H 04/18/18 11:00 Free T4 1.15 ng/dL (0.78-2.19) 04/17/18 07:00 TSH 3rd Generation 2.58 mIU/mL (0.46-4.68) 04/17/18 07:00 Urine Color Yellow (YELLOW) 04/17/18 00:30 Urine Appearance Clear (CLEAR) 04/17/18 00:30 Urine pH 6.0 (4.7-8.0) 04/17/18 00:30 Ur Specific Whiting 1.025 (1.005-1.035) 04/17/18 00:30 Urine Protein Trace mg/dL (<30 mg/dL) H 04/17/18 00:30 Urine Glucose (UA) Negative mg/dL (NEGATIVE) 04/17/18 00:30 Urine Ketones Negative mg/dL (NEGATIVE) 04/17/18 00:30 Urine Blood Small (NEGATIVE) H 04/17/18 00:30 Urine Nitrate Negative (NEGATIVE) 04/17/18 00:30 Urine Bilirubin Negative (NEGATIVE) 04/17/18 00:30 Urine Urobilinogen 0.2 E.U./dL (<1 E.U./dL) 04/17/18 00:30 Ur Leukocyte Esterase Negative Tina/uL (NEGATIVE) 04/17/18 00:30 Urine RBC 1 - 3 /hpf (0-2) H 04/17/18 00:30 Urine WBC 0 - 2 /hpf (0-6) 04/17/18 00:30 Ur Epithelial Cells 1 - 3 /hpf (0-5) 04/17/18 00:30 Urine Bacteria Few /hpf (NONE) 04/17/18 00:30 Hepatitis A IgM Ab Negative (NEGATIVE) 04/22/18 11:00 Hep Bs Antigen Negative (NEGATIVE) 04/22/18 11:00 Hep B Core IgM Ab Negative (NEGATIVE) 04/22/18 11:00 Hepatitis C Antibody Negative (NEGATIVE) 04/22/18 11:00 Influenza Typ A,B (EIA) Negative for flu a/b (NEGATIVE) 04/16/18 15:52 Ur L.pneumophila Ag Negative (NEGATIVE) 04/18/18 11:24 Mycoplasma pneumon IgM Negative (NEGATIVE) 04/16/18 17:00 Ur Strep pneumoniae Ag Not detected (Not Detected) 04/18/18 11:24 Attending/Attestation - Attestation I have personally seen and examined this patient.: Yes I have fully participated in the care of the patient.: Yes I have reviewed all pertinent clinical information, including history, physical exam and plan: Yes Notes (Text): 04/23/18 17:09 Medical record note made by the resident after discussion with my direction and input after the patient was personally seen and examined by me. I have reviewed the chart and agree that the record accurately reflects by personal performance of the history, physical exam, data review, and medical decision-making, in the course for the patient. I have also personally directed the plan of care. 88 year old Ukrainian speaking female with PMH of of asthma, dyslipidemia, hypothyroidism, and CAD was admitted with 2 weeks of cough and congestion with 2 days of worsening dyspnea, cough, purulent sputum production, low grade fever, CXR showed no active disease but CT chest showed interstitial densities.Procalcitonin level was elevated.Patient was treated with IV antibiotics, her cough did not imp[roved and she was started on doxyxycline and cefipime after consultation with ID. Blood culture showed no growth for 5 days and urine and sputum cultures were negative as well. She was given albuterol, tessalon perles and robitussin-dm later switch to robitussin-codeine for her cough. Cough and dyspnea is improved.Patient is on room air.She was evaluated by PT prior to discharge. She was noted to have transaminitis liekly 2/2 to her antibiotics, abdominal US was unremarkable and hepatitis panel was negative. Statin was held due to transaminitis and instructed to follow up with primary doctor for LFT's in one week .This was discussed in detail with her.Patient was also advised not to take Tylenol. Management plan was discussed in detail with patient. Education was provided. 04/23/18 17:17
--- NOTE | 2018-04-23 18:20 | PN ---
DATE: 04/23/2018 SUBJECTIVE: The patient is in bed, in no acute distress and nontoxic. PHYSICAL EXAMINATION: HEENT: Unremarkable. NECK: Supple. LUNGS: Decreased breath sounds. HEART: Normal S1 and S2. ABDOMEN: Soft. LABORATORY DATA: Laboratory examinations are noted. ASSESSMENT AND PLAN: An 88-year-old with sepsis secondary to community-acquired pneumonia, history of coronary artery disease, history of asthma, hypertension status post four days of and cefepime, currently now off antibiotics. Review of orders reveals the patient is on prednisone. White count is 12,700 with LFTs still elevated. We will follow with you. Andrew Ochoa MD
== END 2018-04-23 14:50 | disposition home or self-care (01) | DRG 202 ==
LOC: ED 14:44 → ERH 17:00 → 2RNO 18:31 → OBSVTOIN 04-19 09:28 → 5RSO 04-21 12:23
PROVIDERS: ADMIT Hospitalist; ATTEND Internal Medicine
PROC: 3E0F7GC Introduction of Other Therapeutic Substance into Respiratory Tract, Via Natural or Artificial Opening (ICD-10-PCS; principal; 2018-04-19)
DX: J20.9 Acute bronchitis, unspecified (principal); J18.9 Pneumonia, unspecified organism; I25.10 Atherosclerotic heart disease of native coronary artery without angina pectoris; I50.9 Heart failure, unspecified; I11.0 Hypertensive heart disease with heart failure; Y95 Nosocomial condition; I25.2 Old myocardial infarction; R74.0 Nonspecific elevation of levels of transaminase and lactic acid dehydrogenase [LDH]; E78.00 Pure hypercholesterolemia, unspecified; E03.9 Hypothyroidism, unspecified; J45.909 Unspecified asthma, uncomplicated